=== PATIENT | female | born 2000 | race Caucasian/White ===

== ENCOUNTER 2024-10-06 06:07 | Emergency (ER) | payer BC ==
--- OUTSIDE RECORDS SUMMARY | 2024-10-06 06:11 | XMS REPORT | Continuity of Care Document ---
Author Name Unknown Address [address] [facility] [address] [place] [address] [facility] thconnect Address [address] [facility] [address] [place] [address] Care Team Providers Care Brand Marketing Manager Name Role Phone Lenora Lester Attending Clinician Narciso Ramesh Attending Clinician Lenora Mac Admitting Clinician Christie Ivory Admitting Clinician Unavailable Payers Payer Name Policy Type Policy Number Effective Date Expirati on Date Source Allergies, Adverse Reactions, Alerts Allergy Name Allergy Type Status Severity Reaction(s) Onset Date Inactive Date Treating Clinician Comments Source No Known Drug Allergie s DA Active U 07-01 00:00: 00 [facility] No Known Allergie s DA Active U 2018-11 00:00: 00 [facility] No Known Allergie s DA Active U 2018-11 00:00: 00 [facility] No Known Allergie s DA Active U 11-24 00:00: 00 [facility] Procedures Procedure Date / Time Performed Performing Clinicia n Source [id number] 2024-07-01 00:00:00 MONMA.05 [facility] Encounters Start Date/Time End Date/Time Encounter Type Admission Type Attending Clinicians Care Facility Care Department Encounter ID Source 2024-07-01 04:39:00 2024-07-03 11:48:00 Inpatient Lenora Govea [facility] [id number] 10 [facility] 2024-02-22 14:17:00 2024-02-22 17:05:00 Emergency EM Narciso Cuello [facility] [id number] [facility] Results Test Description Test Time Test Comments Results Result Co mments Source AG HEPATITIS B [id number] 13:42:00* Test Item Value Reference Range Interpretation Comme nts AG HEPATITIS B SURFACE (test code = HBSAG) NON REACTIVE NONREACTIVE AB HEPATITIS C [id number] 13:42:00* Test Item Value Reference Range Interpretation Comme nts AB HEPATITIS C (test code = HCVAB) NONREACTIVE NONREACTIVE SIGNAL TO CUTOFF (test code = CUTOFF) <0.02 <0.80 N AB [id number] 13:42:00* Test Item Value Reference Range Interpretation Comme nts AB TREPONEMA (test code = TREPAB) NONREACTIVE NONREACTIVE AB HIV 1 13:42:00* Test Item Value Reference Range Interpretation Comme nts AB HIV 1 2 (test code = [id number]) NONREACTIVE NONREACTIVE Done by [employer] HIV Ag/Ab Combo Screen COMPREHENSIVE METABOLIC [id number] 12:57:00* Test Item Value Reference Range Interpretation Comme nts SODIUM (test code = NA) 138 mEq/L 136-145 N POTASSIUM (test code = K) 4.1 mEQ/L 3.4-4.5 N Please note new normal range as of March 2024 CHLORIDE (test code = CL) 107 mEq/L 98-107 N Please note new normal range as of March 2024 CARBON DIOXIDE (test code = CO2) 21 mEq/L 22-31 L ANION GAP (test code = GAP) 14.1 10-20 N GLUCOSE (test code = GLU) 81 mg/dL 74-106 N Please note new normal range as of March 2024 BLOOD UREA NITROGEN (test code = BUN) 7 mg/dL 8-23 L Please note ne w normal range as of March 2024 CREATININE (test code = CREAT) 0.5 mg/dL 0.55-1.02 L Please note new normal range as of March 2024 TOTAL PROTEIN (test code = PROT) 6.4 g/dL 5.7-8.2 N Please note new normal range as of March 2024 ALBUMIN (test code = ALB) 3.7 g/dL 3.2-4.8 N Please note new normal range as of March 2024 CALCIUM (test code = CA) 9.3 mg/dL 8.3-10.6 N Please note new normal range as of March 2024 BILIRUBIN TOTAL (test code = BILT) 0.6 mg/dL 0.3-1.2 N Please note n ew normal range as of March 2024 SGOT/AST (test code = AST) 20 units/L < 34 SGPT/ALT (test code = ALT) 15 units/L 10-49 N ALKALINE PHOSPHATASE TOTAL (test code = ALKP) 242 units/L 46-116 H Please note n ew normal range as of March 2024 GLOMERULAR FILTRATION RATE (test code = GFR) 132.57 ml/min >60 N The Glomerular Filtration Rate is a calculated parameterbased on serum Creatinine, patient age and sex. GFR valuesless than 60 mL/min/1.73 square meters are indicative ofChronic Kidney Disease. Values less than 15 mL/min/1.73square meters indicate Kidney failure. The calculation forGFR is based on the CKD-EPI (2020) calculation. This formulais race indifferent and is the recommended formula for GFRby the National Kidney Foundation for Adults.The GFR will not calculate if the sex is unknown or if thepatient's age is <18 years. CBC W/AUTO [id number] 12:30:00* Test Item Value Reference Range Interpretation Comme nts WHITE BLOOD CELL (test code = WBC) 10.0 K/mm3 6.5-12.3 N RED BLOOD CELL (test code = RBC) 4.07 M/mm3 3.51-4.69 N HEMOGLOBIN (test code = HGB) 12.1 g/dL 10.1-13.8 N HEMATOCRIT (test code = HCT) 36.8 % 32.5-41.8 N MEAN CELL VOLUME (test code = MCV) 90.4 fL 84.6-96.6 N MEAN CELL HGB (test code = MCH) 29.7 pg 27.3-33.9 N MEAN CELL HGB CONCETRATION ( test code = MCHC) 32.9 gm/dL 32.0-34.2 N RED CELL DISTRIBUTION WIDTH (test code = RDW) 13.0 % 12.2-16.3 N PLATELET COUNT (test code = PLT) 258 K/mm3 134-363 N MEAN PLATELET VOLUME (test c ode = MPV) 9.8 fL 9.2-12.7 N NEUTROPHIL % (test code = NT%) 68.5 % 57.9-77.3 N LYMPHOCYTE % (test code = LY%) 21.1 % 14.5-29.7 N MONOCYTE % (test code = MO%) 8.2 % 3.6-10.2 N EOSINOPHIL % (test code = EO%) 1.6 % 0.0-3.0 N BASOPHIL % (test code = BA%) 0.2 % 0.1-0.9 N NEUTROPHIL # (test code = NT#) 6.8 K/mm3 LYMPHOCYTE # (test code = LY#) 2.1 K/mm3 MONOCYTE # (test code = MO#) 0.8 K/mm3 EOSINOPHIL # (test code = EO#) 0.16 K/mm3 BASOPHIL # (test code = BA#) 0.0 K/mm3 - US [id number] 16:52:00 [facility] : 2000 Sex: F Patient Name: JOHAN LOREDO Unit No: [id number] EXAMS: CPT CODE: [id number] US LTD 76896 EXAM: - US LTD: 02/22/2024 3:22 PM HISTORY: 19 weeks pelvic pain COMPARISON: None Fetus: Single, breech presentation. Placenta: Anterior, without previa. Cervix: 3.9 cm in length. Amniotic fluid: Maximum vertical pocket 5.1 cm movement: Observed Heart rate: 145 beats perminute GESTATIONAL AGE (established): 19 weeks, 5 days, EDC (established): 07/13/2024 Bilateral maternal ovaries appear unremarkable. IMPRESSION: Intrauterine with breech presentation with heart tones present. This examination does not include a complete evaluation. If a evaluation is clinically indicated, and complete OB ultrasound exam is recommended on an elective basis. at 1652 Reported and signed by: Ebony Ruth MD CC: Narciso Cuello MD Technologist: Odilon Calabrese RDMS Probe: Trnscrbd D/ (1651) [id number] Orig Print D/T: S: 02/22/2024 (842) [facility] N LOLA: JOHAN LOREDO Radiology Department PHYS: Narciso Sutton MD [address] : 2000 AGE: 23 SEX: [place] [address] LOC: KatelynERS PHONE #: [phone] EXAM DATE: 02/22/2024 STATUS: REG ER FAX #: [phone] RAD NO: Page 1 Signed Report Patient Name: JOHAN CARBONE Unit No: [id number] EXAMS: CPT CODE: [id number] LTD 63895 (Continued) [facility] NAME: JOHAN LOREDO Radiology Department PHYS: Narciso Sutton MD [address] : 2000 AGE: 23 SEX: [place] [address] LOC: KatelynERS PHONE #: [phone] EXAM DATE: 02/22/2024 STATUS: REG ER FAX #: [phone] RAD NO: Page 2 Signed ReportRUPTURE OF [id number] 16:03:00* Test Item Value Reference Range Interpretation Comme nts RUPTURE OF MEMBRANES (test c ode = ROM) NON-RUPTURED UA RFLX MICR CULT IF [id number] 15:27:00* Test Item Value Reference Range Interpretation Comme nts UA COLOR (test code = COLU) STRAW YELLOW UA APPEARANCE (test code = APPU) CLEAR CLEAR UA GLUCOSE DIPSTICK (test co de = DGLUU) NEGATIVE NEG UA BILIRUBIN DIPSTICK (test code = BILU) NEGATIVE NEG UA KETONE DIPSTICK (test cod e = KETU) 2+ NEG A UA SPECIFIC GRAVITY (test co de = SGU) 1.008 1.001-1.035 N UA BLOOD DIPSTICK (test code = DON) NEG NEG UA PH DIPSTICK (test code = ZOLTAN) 5.0 5-9 UA PROTEIN DIPSTICK (test co de = PROU) NEGATIVE NEG UA UROBILINIOGEN DIPSTICK (test code = URO) NEGATIVE mg/dL NEG UA NITRITE DIPSTICK (test co de = DELIO) NEG NEG UA LEUKOCYTE ESTERASE DIPSTI CK (test code = LEUU) NEG NEG UA WBC (test code = WBCU) 0-2 #/hpf NONE SEEN UA RBC (test code = RBCU) 0-2 #/hpf NONE SEEN UA EPITHELIAL CELLS (test co de = EPIU) RARE #/HPF RARE-FEW UA MUCUS (test code = MUCU) RARE NONE SEEN Indication for culture: Suprapubic PainSpecimen Description: CLEAN CATCH COMPREHENSIVE METABOLIC [id number] 15:26:00* Test Item Value Reference Range Interpretation Comme nts SODIUM (test code = NA) 137 mEq/L 135-145 N POTASSIUM (test code = K) 3.4 mEq/L 3.5-5.0 L CHLORIDE (test code = CL) 103 mEq/L 100-115 N CARBON DIOXIDE (test code = CO2) 24 mEq/L 22-31 N ANION GAP (test code = GAP) 13.50 10-20 N GLUCOSE (test code = GLU) 71 mg/dL 65-110 N BLOOD UREA NITROGEN (test code = BUN) 7 mg/dL 7-18 N CREATININE (test code = CREAT) 0.4 mg/dL 0.5-1.0 L TOTAL PROTEIN (test code = PROT) 6.9 gm/dL 6.3-8.2 N ALBUMIN (test code = ALB) 2.5 gm/dL 3.4-4.8 L CALCIUM (test code = CA) 8.4 mg/dL 8.4-10.2 N BILIRUBIN TOTAL (test code = BILT) 0.3 mg/dL 0.2-1.0 N SGOT/AST (test code = AST) 17 units/L 15-37 N SGPT/ALT (test code = ALT) 22 units/L 12-78 N ALKALINE PHOSPHATASE TOTAL (test code = ALKP) 61 units/L 46-116 N GLOMERULAR FILTRATION RATE (test code = GFR) 141 ml/min >60 N The Glomerular Filtration Rate is a calculated parameterbased on serum Creatinine, patient age and sex. GFR valuesless than 60 mL/min/1.73 square meters are indicative ofChronic Kidney Disease. Values less than 15 mL/min/1.73square meters indicate Kidney failure. The calculation forGFR is based on the CKD-EPI (202) calculation. This formulais race indifferent and is the recommended formula for GFRby the National Kidney Foundation for Adults.The GFR will not calculate if the sex is unknown or if thepatient's age is <18 years. CBC W/AUTO [id number] 15:10:00* Test Item Value Reference Range Interpretation Comme nts WHITE BLOOD CELL (test code = WBC) 13.6 K/mm3 6.5-12.3 H RED BLOOD CELL (test code = RBC) 3.71 M/mm3 3.51-4.69 N HEMOGLOBIN (test code = HGB) 11.5 g/dL 10.1-13.8 N HEMATOCRIT (test code = HCT) 34.2 % 32.5-41.8 N MEAN CELL VOLUME (test code = MCV) 92.2 fL 84.6-96.6 N MEAN CELL HGB (test code = MCH) 31.0 pg 27.3-33.9 N MEAN CELL HGB CONCETRATION ( test code = MCHC) 33.6 gm/dL 32.0-34.2 N RED CELL DISTRIBUTION WIDTH (test code = RDW) 12.2 % 12.2-16.3 N PLATELET COUNT (test code = PLT) 288 K/mm3 134-363 N MEAN PLATELET VOLUME (test c ode = MPV) 9.0 fL 9.2-12.7 L NEUTROPHIL % (test code = NT%) 75.2 % 57.9-77.3 N LYMPHOCYTE % (test code = LY%) 16.2 % 14.5-29.7 N MONOCYTE % (test code = MO%) 6.5 % 3.6-10.2 N EOSINOPHIL % (test code = EO%) 1.4 % 0.0-3.0 N BASOPHIL % (test code = BA%) 0.3 % 0.1-0.9 N NEUTROPHIL # (test code = NT#) 10.2 K/mm3 LYMPHOCYTE # (test code = LY#) 2.2 K/mm3 MONOCYTE # (test code = MO#) 0.9 K/mm3 EOSINOPHIL # (test code = EO#) 0.19 K/mm3 BASOPHIL # (test code = BA#) 0.0 K/mm3 HGB [id number] 08:35:00* Test Item Value Reference Range Interpretation Comme nts HEMOGLOBIN (test code = HGB) 9.5 g/dL 10.7-13.9 L Results verified by repeat analysis HEMATOCRIT (test code = HCT) 29.6 % 32.1-42.1 L Results verified by repeat analysis AG HEPATITIS B [id number] 16:23:00* Test Item Value Reference Range Interpretation Comme nts AG HEPATITIS B SURFACE (test code = HBSAG) NONREACTIVE NONREACTIVE IS CONSENT FORM SIGNED FOR HIV TESTING? YAB HEPATITIS C [id number] 16:23:00* Test Item Value Reference Range Interpretation Comme nts AB HEPATITIS C (test code = HCVAB) NONREACTIVE NONREACTIVE SIGNAL TO CUTOFF (test code = CUTOFF) <0.02 <0.80 N IS CONSENT FORM SIGNED FOR HIV TESTING? YAB [id number] 16:23:00* Test Item Value Reference Range Interpretation Comme nts AB TREPONEMA (test code = TREPAB) NONREACTIVE NONREACTIVE IS CONSENT FORM SIGNED FOR HIV TESTING? YAB HIV 1 16:23:00* Test Item Value Reference Range Interpretation Comme nts AB HIV 1 2 (test code = APO73FJ) NONREACTIVE NONREACTIVE Done by [employer] HIV Ag/Ab Combo Screen IS CONSENT FORM SIGNED FOR HIV TESTING? YCBC W/AUTO [id number] 13:50:00* Test Item Value Reference Range Interpretation Comme nts WHITE BLOOD CELL (test code = WBC) 8.7 K/mm3 6.6-12.1 N RED BLOOD CELL (test code = RBC) 4.11 M/mm3 3.45-5.01 N HEMOGLOBIN (test code = HGB) 12.6 g/dL 10.7-13.9 N HEMATOCRIT (test code = HCT) 39.4 % 32.1-42.1 N MEAN CELL VOLUME (test code = MCV) 96 fL 84.1-94.8 H MEAN CELL HGB (test code = MCH) 30.7 pg 27-35 N MEAN CELL HGB CONCETRATION ( test code = MCHC) 32.0 gm/dL 32.2-34.1 L RED CELL DISTRIBUTION WIDTH (test code = RDW) 12.6 % 12.4-16.5 N PLATELET COUNT (test code = PLT) 247 K/mm3 133-385 N IMMATURE PLATELET FRACTION ( test code = IPF) 0.0 % 0.0-10.8 N MEAN PLATELET VOLUME (test c ode = MPV) 10.0 fl 9.1-12.7 N NEUTROPHIL % (test code = NT%) 69.2 % 56.5-79.4 N LYMPHOCYTE % (test code = LY%) 22.6 % 14.3-34.3 N MONOCYTE % (test code = MO%) 6.9 % 5.1-10.4 N EOSINOPHIL % (test code = EO%) 0.5 % 0.1-3.0 N BASOPHIL % (test code = BA%) 0.3 % 0.1-1.0 N NEUTROPHIL # (test code = NT#) 6.0 K/mm3 LYMPHOCYTE # (test code = LY#) 2.0 K/mm3 MONOCYTE # (test code = MO#) 0.6 K/mm3 EOSINOPHIL # (test code = EO#) 0.04 K/mm3 BASOPHIL # (test code = BA#) 0.0 K/mm3 RBC MORPHOLOGY REQUIRED (sherri t code = RBCM) NORMAL NORMAL PLATELET MORPHOLOGY REQUIRED (test code = PLTMR) NORMAL NORMAL URINALYSIS W/O [id number] 13:46:00* Test Item Value Reference Range Interpretation Comme nts UA GLUCOSE DIPSTICK (test co de = DGLUU) NEGATIVE NEGATIVE UA KETONE DIPSTICK (test cod e = KETU) 1+ NEGATIVE UA PROTEIN DIPSTICK (test co de = PROU) NEGATIVE NEGATIVE IS NURSE PERFORMING TEST? N- US PREG AFTER [id number] 12:01:00Patient Name: JOHAN LOREDO Unit No: [id number] EXAMS: CPT CODE: [id number] US PREG AFTER [address] [facility] [address] [place], [place] [address] OBSTETRICAL ULTRASOUND REPORT ---- Pat. Name: JOHAN LOREDO Pat. No: [id number] Study Date: 04/27/2019 10:50am , Age: 07 2000, 18 Pregnancies: 2, Para 1 LMP: 12/14/2018 GA by LMP: 19w1d GA by US: 19w1d GA Selected: 19w1d (LMP) CLAY: 09/20/2019 Referring MD: CHRISTIE COYNE Piece Hand: Nae Chavez RDMS CPT4: [id number] Admitting MD: CHRISTIE COYNE MHist/Ind: 1ST SCAN ANATOMY ME ASUREMENTS AGE GROWTH EVALUATION Measurement GA Range Srce %for GA Ratios ----- ---- ------- BPD 4.5 cm 19w4d (01f0i-78i4q) Hadl BPD 70% FL/BPD 0.68 HC 16.6 cm 19w1d (17w4d- 20w6d) Hadl HC 53% FL/AC 0.23 APD 3.8 cm APD HC/AC 1.27 (1.06 - 1.25* TAD 4.5 cm TAD CI 0.81 (0.70 - 0.86) AC 13.1 cm 18w2d (68h2w-28h7p) Hadl AC 32% FL 3.1 cm 19w1d (18n3z-06l8s) Hadl FL 50% HL 2.7 cm 18w4d (69r9a-45l7t) Chidi HL 42% GA for sonogram 19w1d (21p0c-98p8r) Weight Estimate: based on (BPD,HC,AC,FL) Hadlock Weight: 272 gm (232-311) Hadlock : 0lbs, 9oz Cervical Length: 3.2 cm Heart Rate: 151 bpm MATERNAL ANATOMY Ovaries LxHxW (cm) Right 2.1 x 1.7 x 2.6 Vol: 4.9cc Left 2.5 x 0.9 x 2.3 Vol: 2.7cc CLINICAL SUMMARY Type of Gestation: Bacon Intrauterine in vertex presentation. size is appropriate for gestational age. motion and o rgans seen: heart motion seen somatic activity observed body and limb movements seen Four chamber heart observed Left ventricular outflow tract (LVOT) seen [facility] NAME: JOHAN LOREDO Radiology Department PHYS: Christie Laguerre III, MD [address] : 2000 AGE: 18 SEX: Daysi [place], [place] [address] LOC: [facility] PHONE #: [phone] EXAM DATE: 04/27/2019 STATUS: REG CLI FAX #: [phone] RAD NO: Page 1 Signed Report (CONTINUED) Patient Name: JOHAN LOREDO Unit No: [id number] EXAMS: CPT CODE: [id number] US PREG [id number] TRI 72167 (Continued) Right ventricular outflow tract (RVOT) seen Normal intracranial anatomy seen Umbilical cord insertion in fetus seen stomach, Renal Fossa, Bladder and Spine seen Threevessel umbilical cord noted abnormalities observed: None seen at this exam Placental location: Posterior Placental maturity : Grade 1 There is no evidence of placenta previa. Amniotic fluid vol ume is normal. Uterus and adnexa: No significant abnormality is seen. Thank you for allowing us to participate in the care of this patient. Joshua Johnson M.D. Electronic Signature 04/27/2019 12:01pm at 1201 Reported and signed by: Joshua Johnson MD CC: Christie Coyne III, MD Technologist: Nae Chavez RDMS Probe: Trnscrbd D/ (1201) [id number] Orig Print D/T: S: 04/27/2019 (1201) [facility] NAME: JOHAN LOREDO Radiology Department PHYS: Christie Laguerre III, MD [address] : 2000 AGE: 18 SEX: F [place], [place] [address] LOC: [facility] PHONE #: [phone] EXAM DATE: 04/27/2019 STATUS: REG CLI FAX #: [phone] RAD NO: Page 2 Signed Report PatientName: JOHAN LOREDO Unit No: [id number] EXAMS: CPT CODE: [id number] US PREG AFTER 1ST TRI [address]396 (Continued) [facility] NAME: LOREDOJOHAN Radiology Department PHYS: Christie Laguerre III, MD [address] : 2000 AGE: 18 SEX: F [place] [id number] LOC: [facility] PHONE #: [phone] EXAM DATE: 04/27/2019 STATUS: REG CLI FAX #: [phone] RAD NO: Page 3 Signed ReportHCG [id number] 22:17:00* Test Item Value Reference Range Interpretation Comme nts HCG SERUM (test code = HCG) 07080 INTERPRETATION:V ALUES BETWEEN 15-20 milliInternational units/mL NEED TO BERETESTED WITHIN 48 HOURS. All units for these ranges are in milliInternationalunits/mL0-1 WK AFTER CONCEPTION 0-50 1-2 WKS AFTER CONCEPTION 40-3002-3 WKS AFTER CONCEPTION 100-1,0003-4 WKS AFTER CONCEPTION 500-6,0001-2 MONTHS AFTER CONCEPTION 5,000-200,0002-3 MONTHS AFTER CONCEPTION 10,000-100,0002ND TRIMESTER 3,000-50,0003RD TRIMESTER 1,000-50,000 SPECIMENS WITH AN HCG LEVEL FROM 0-6 milliInternationalunits/mL SHOULD BE CONSIDERED NEGATIVE COMPREHENSIVE METABOLIC [id number] 21:58:00* Test Item Value Reference Range Interpretation Comme nts SODIUM (test code = NA) 138 mEq/L 135-145 N POTASSIUM (test code = K) 3.1 mEq/L 3.5-5.0 L CHLORIDE (test code = CL) 103 mEq/L 100-115 N CARBON DIOXIDE (test code = CO2) 27 mEq/L 22-31 N ANION GAP (test code = GAP) 11.40 10-20 N GLUCOSE (test code = GLU) 93 mg/dL 65-110 N BLOOD UREA NITROGEN (test co de = BUN) 6 mg/dL 7-18 L GLOMERULAR FILTRATION RATE ( test code = GFR) 157 ml/min >60 N CREATININE (test code = CREAT) 0.5 mg/dL 0.5-1.0 N TOTAL PROTEIN (test code = PROT) 6.5 gm/dL 6.3-8.2 N ALBUMIN (test code = ALB) 2.8 gm/dL 3.4-4.8 L CALCIUM (test code = CA) 8.4 mg/dL 8.4-10.2 N BILIRUBIN TOTAL (test code = BILT) 0.3 mg/dL 0.2-1.0 N SGOT/AST (test code = AST) 17 units/L 15-37 N SGPT/ALT (test code = ALT) 16 units/L 12-78 N ALKALINE PHOSPHATASE TOTAL ( test code = ALKP) 51 units/L 46-116 N [id number] 21:58:00* Test Item Value Reference Range Interpretation Comme nts LIPASE (test code = LIP) 63 units/L 73-393 L UA RFLX MICR CULT IF [id number] 21:39:00* Test Item Value Reference Range Interpretation Comme nts UA COLOR (test code = COLU) YELLOW YELLOW UA APPEARANCE (test code = APPU) CLEAR CLEAR UA GLUCOSE DIPSTICK (test co de = DGLUU) NEGATIVE NEG UA BILIRUBIN DIPSTICK (test code = BILU) NEGATIVE NEG UA KETONE DIPSTICK (test cod e = KETU) NEGATIVE NEG UA SPECIFIC GRAVITY (test co de = SGU) 1.006 1.001-1.035 N UA BLOOD DIPSTICK (test code = DON) NEG NEG UA PH DIPSTICK (test code = ZOLTAN) 6.0 5-9 UA PROTEIN DIPSTICK (test co de = PROU) NEGATIVE NEG UA UROBILINIOGEN DIPSTICK (t est code = URO) 4.0 mg/dL NEG A UA NITRITE DIPSTICK (test co de = DELIO) NEG NEG UA LEUKOCYTE ESTERASE DIPSTI CK (test code = LEUU) NEG NEG UA WBC (test code = WBCU) 0-2 #/hpf NONE SEEN UA EPITHELIAL CELLS (test co de = EPIU) RARE #/HPF RARE-FEW UA BACTERIA (test code = BACU) MODERATE /HPF RARE-FEW A UA MUCUS (test code = MUCU) RARE NONE SEEN CBC W/AUTO [id number] 21:34:00* Test Item Value Reference Range Interpretation Comme nts WHITE BLOOD CELL (test code = WBC) 5.2 K/mm3 6.6-12.1 L RED BLOOD CELL (test code = RBC) 3.82 M/mm3 3.45-5.01 N HEMOGLOBIN (test code = HGB) 11.7 g/dL 10.7-13.9 N HEMATOCRIT (test code = HCT) 34.9 % 32.1-42.1 N MEAN CELL VOLUME (test code = MCV) 91 fL 84.1-94.8 N MEAN CELL HGB (test code = MCH) 30.6 pg 27-35 N MEAN CELL HGB CONCETRATION ( test code = MCHC) 33.5 gm/dL 32.2-34.1 N RED CELL DISTRIBUTION WIDTH (test code = RDW) 12.7 % 12.4-16.5 N PLATELET COUNT (test code = PLT) 196 K/mm3 133-385 N IMMATURE PLATELET FRACTION ( test code = IPF) 0.0 % 0.0-10.8 N MEAN PLATELET VOLUME (test c ode = MPV) 9.3 fl 9.1-12.7 N NEUTROPHIL % (test code = NT%) 62.5 % 56.5-79.4 N LYMPHOCYTE % (test code = LY%) 23.8 % 14.3-34.3 N MONOCYTE % (test code = MO%) 11.2 % 5.1-10.4 H EOSINOPHIL % (test code = EO%) 1.9 % 0.1-3.0 N BASOPHIL % (test code = BA%) 0.2 % 0.1-1.0 N NEUTROPHIL # (test code = NT#) 3.2 K/mm3 LYMPHOCYTE # (test code = LY#) 1.2 K/mm3 MONOCYTE # (test code = MO#) 0.6 K/mm3 EOSINOPHIL # (test code = EO#) 0.10 K/mm3 BASOPHIL # (test code = BA#) 0.0 K/mm3 RBC MORPHOLOGY REQUIRED (sherri t code = RBCM) NORMAL NORMAL PLATELET MORPHOLOGY REQUIRED (test code = PLTMR) NORMAL NORMAL Notes Date/Time Note Provider Source 2024-08-28 19:40:00 [facility] OB Disch REPORT#:[id number] REPORT STATUS: Signed REPORT INITIALIZATION DATE:08/28/24 TIME: 1939 PATIENT: JOHAN LOREDO UNIT #: [id number] ROOM/BED: [address] : 98 AGE: 24 SEX: F ATTEND: Lenora Lester MD ADM AUTHOR: Idalia Gonzalez DO REPT SERVICE DT/TIME: 08/28/241939 * ALL edits or amendments must be made on the electronic/computer document * Subjective Subjective Admission EGA: Weeks: 38 Days: 2 EGA at delivery (wks/days): 38 weeks Status/day: post , post operative (2) Objective Physical Exam Incision site: well approximated edges, no drainage, no inflammation Discharge Summary General Assessment: nml progress Hospital course: repeat admit Discharge to: Home/Self Care Discharge diagnosis: full-term uncomp delivery Baby A: status: live born Gender: male 1 minute: 8 5 minutes: 9 Plan: routine care, circumcision today Discharge Instructions Diet: Resume Home Diet/Feeds Additional discharge routines: Attending Follow-Up Discharge meds: Continue taking these medications: PNV WITH CA/IRON/FA/DHA (PNV-OMEGA SOFTGEL) 1 EACH CAP 1 CAPSULE ORAL DAILY. CHOLECALCIFEROL (VITAMIN D3) (VITAMIN D3) 1,000 UNITS CAP Start taking the following new medications: IBUPROFEN (MOTRIN) 600 MG TAB 600 MILLIGRAM ORAL FOUR TIMES DAILY NEEDED. as needed for PAIN Qty = 30 No Refills traMADol (ULTRAM) 50 MG TAB 50 MILLIGRAM ORAL EVERY 6 HOURS NEEDED. as needed for ACUTE PAIN Qty = 20 No Refills Add'l Follow-up Appointments Attending Physician: Attending Physician: Lenora Lester MD at 1940 RPT #:[id number] END OF REPORT [facility] 2024-07-05 20:51:00 [id number] [facility] [address] [place], [place] [address] PATIENT NAME: JOHAN LOREDO ADMIT DATE: 07/01/24 ACCOUNT NO: [id number] ROOM NO: [id number] AGE: 24 SEX: F ADMITTING PHYSICIAN: Lenora Lester MD ATTENDING PHYSICIAN: Lenora Lester MD Provider Query QUERY TEXT: Condition OB Blood Loss 360MD Query related questions should be directed to: [facility] Coding Query Hotline Based on your clinical judgment, please clarify the condition(s) that represent(s) the clinical indicators listed below. The medical record reflects the diagnosis/procedure of section-OB Delivery Note 07/01/2024 The patient's Clinical Indicators include: section-OB Delivery Note 07/01/2024 Estimated blood loss (ml): 500-OB Delivery Note 07/01/2024 HEMATOCRIT (%) 36.8 21.3 L HEMOGLOBIN (g/dL) 12.1 7.2 L-LAB VITAMIN 1 TAB-MAR Options provided: -- Acute hemorrhagic/blood loss anemia -- Chronic blood loss anemia -- Acute on chronic blood loss anemia -- Iron deficiency anemia -- Other deficiency anemia, Please specify type (e.g. vitamin, B12, folate, etc.) -- Inherited anemia, Please specify type (e.g. sickle cell, thalassemia, etc). -- Decreased hemoglobin and hematocrit values not diagnosed as anemia -- Dilutional -- Drug induced anemia, Please specify drug. -- Anemia due to other condition, Please specify condition. -- Anemia, unspecified -- Other - I will add my own diagnosis -- Dismiss - Not applicable / Not valid -- Dismiss - Clinically unable to determine / Unknown -- Assign to another provider QUERY RESPONSE: The patient has acute on chronic blood loss anemia. Query created by: Yaima Saenz on 07/05/2024 7:20 AM at 2051 PATIENT NAME: JOHAN LOREDO [facility] 2024-07-03 07:07:00 [facility] ([facility]) OB Postpart Progr Note REPORT#:[id number] REPORT STATUS: Signed REPORT INITIALIZATION DATE:07/03/24 TIME: 706 PATIENT: JOHAN LOREDO UNIT #: [id number] ROOM/BED: [address] : 98 AGE: 24 SEX: F ATTEND: Lenora Lester MD ADM AUTHOR: Oralia Keenan MD REPT SERVICE DT/TIME: 07/03/24 0707 * ALL edits or amendments must be made on the electronic/computer document * Subjective Subjective Admission EGA: Weeks: 38 Days: 2 EGA at delivery (wks/days): 38 weeks Status/day: post , post operative (2) Patient reports: Patient reports: No: complaints. Objective Nursing Documentation Review Nursing data: Vital Signs Date Temp Pulse Resp B/P B/P Mean Pulse Ox FiO2 07/02 97.9-98.0 80-88 18 110-117/69-72 84.0-86.9 98 Physical Exam Abdomen: soft, no abnormal tenderness, no guarding Incision site: well approximated edges, no drainage, no inflammation Uterus: involution appropriate, non-tender Lochia: normal Diagnosis, Assessment Plan Diagnosis, Assessment Plan Assessment: nml progress Plan: routine care, circumcision today at 0749 RPT #:[id number] END OF REPORT [facility] 2024-07-02 07:43:00 [facility] ([facility]) OB Postpart Progr Note REPORT#:[id number] REPORT STATUS: Signed REPORT INITIALIZATION DATE:07/02/24 TIME: 742 PATIENT: JOHAN LOREDO UNIT #: [id number] [address] AGE: 24 SEX: F ATTEND: Lenora Lester MD ADM AUTHOR: Oralia Keenan MD REPT SERVICE DT/TIME: 07/02/24 0743 * ALL edits or amendments must be made on the electronic/computer document * Subjective Subjective Admission EGA: Weeks: 38 Days: 2 EGA at delivery (wks/days): 38 weeks Comments: Pt sleeping soundly Objective Nursing Documentation Review Nursing data: General VS: Vital Signs Date Temp Pulse Resp B/P B/P Mean Pulse Ox FiO2 07/01-07/02 97.6-98.7 77-100 14-32 89-114/50-70 65.0-85.0 93-100 Last Documented: Result Date Time B/P Mean 66.0 07/02 0449 Pulse Ox 93 07/02 0449 B/P 97/50 07/02 0449 Temp 98.6 07/02 044 Pulse 86 07/02 0449 Resp 18 07/02 0449 PATIENT WEIGHT: Weight (lb): 188 Weight (oz): Weight (kg): 85.500 Diagnosis, Assessment Plan Diagnosis, Assessment Plan Assessment: nml progress Plan: routine care at 0749 RPT #:[id number] END OF REPORT [facility] 2024-07-01 06:48:00 [facility] ([facility]) OB Delivery Note REPORT#:[id number] REPORT STATUS: Signed REPORT INITIALIZATION DATE:07/01/24 TIME: 647 PATIENT: JOHAN LOREDO UNIT #: [id number] ROOM/BED: [address] : 98 AGE: 24 SEX: F ATTEND: Lenora Lester MD ADM AUTHOR: Idalia Gonzalez DO REPT SERVICE DT/TIME: 07/01/24 0648 * ALL edits or amendments must be made on the electronic/computer document * OB Delivery Nursing Documentation Review Nursing data: The data set between the solid lines has been imported from nursing documentation. Any exceptions have been noted below under Provider comments. _ ROM date: ROM time: Membranes rupture method: Amniotic fluid color: Amniotic fluid amount: Steroids prior to arrival: Antibiotic prophylaxis given: Post hemorrhage risk score: Delivery date infant A: Delivery time A: Birthweight (gm) infant A: Weight (lb) infant A: Weight (oz) infant A: Gender infant A: 1 minute A: 5 minutes infant A: 10 minutes infant A: Cord pH obtained infant A: Vacuum time infant A: Vacuum # pulls infant A: Vacuum # popoffs A: QBL at delivery: __ Provider comments on imported nursing data: [] Pre-delivery GBS status: GBS status: negative [place] evaluation at delivery: NRP certified personnel Admission EGA: Weeks: 38 Days: 2 EGA at delivery (wks/days): 38 weeks Blood Loss/Details Blood loss at delivery: <1K: no sx hypovol=no hem EBL at delivery (ml's): 500 Baby A Information Baby A information Delivery date: 07/01/24 Delivery time: 740 status: live born Wt of baby (grams): 3440 Wt of baby (lbs/oz): 79 Gender: male 1 minute: 8 5 minutes: 9 Presentation: vertex ABG details Baby A Cord blood gases: not collected Nuchal cord Baby A Nuchal cord: no Op/Inv Proc Note - Brief )(Start date: 07/01/2024 )(Start time: 735 )( Procedure(s) performed: repeat low transverse c/s )( Primary Surgeon: Antonette Gonzalez )( Accounting Manager Cpa(s): [employer] [place] )( Pre-procedure diagnosis: Term , Prior csection x2 )( Post-procedure diagnosis: Same )( Technique/Procedure: After informed consent was obtained, the patient was taken to the operating room where anesthesia was administered and found to be adequate. She was then prepped and draped in sterile fashion in a dorsal supine position with a leftward tilt. A time out procedure was then performed and the OR team agreed to the planned procedure. The patient s abdomen was then tested with an Allis clamp and anesthesia was found to be adequate. A Pfannenstiel skin incision was then made with the scalpel and carried down to the underlying fascia with the bovie. The bovie was then used to score the fascia in the midline and the incision was then extended laterally using bovie electrocautery. The superior aspect of the fascial incision was then grasped with Edwin clamps, elevated and rectus muscles were dissected off. The inferior aspect of the fascial incision was then grasped with Edwin clamps, elevated and rectus muscles were dissected off. The rectus muscles were then in the midline and the peritoneum identified in a clear area and entered bluntly. The peritoneum was then extended superior and inferiorly with good visualization of the bladder. The bladder blade was then inserted and the vesicouterine peritoneum was then identified, grasped with pickups and entered sharply using Metzembaum scissors. The incision was then extended laterally and bladder flap created digitally. The bladder blade was then reinserted and the uterus was incised in a transverse fashion with the scalpel. The incision was then extended laterally using blunt dissection. The infant was then delivered in cephalic presentation atraumatically, nose and mouth were suctioned, cord was clamped and cut, and infant was handed off to waiting nurse. Nuchal cord was not noted. Cord blood banking was not collected. The placenta was then removed manually and the uterus was exteriorized and was cleared of all clots and debris with a moist lap sponge. The hysterotomy was then repaired using 0 Monocryl in a running locked fashion with good hemostasis noted. The uterus was then returned to the abdomen. The pelvic colic gutters were then cleared off all clots and debris using a moist lap sponge. The hysterotomy and bladder were then reinspected and found to be hemostatic. The rectus muscles and peritoneum were then reapproximated in the midline using 2.0 Vicryl in a mattress suture fashion. The muscle and fascia were then examined and found to be hemostatic. The fascia was then reapproximated using 0 Vicryl in a running fashion. The subcutaneous tissue was then irrigated and bovie cautery was used to obtain hemostasis. The subcutaneous tissue was then reapproximated using 2.0 Plain. The skin was then closed with 3.0 Monocryl in a subcuticular fashion. The patient tolerated the procedure well. She was then taken to recovery room in stable condition. Sponge, lap and needle counts were correct times 3. The radiofrequency scan was performed for retained sponges and was negative. 2 grams of ancef were given prior to the start of surgery for surgical prophylaxis. Anesthesia: combined spinal/epidural )( Estimated blood loss (ml): 500 Fluids: 2000 Urine output: 75 Condition: stable Delivery Delivery section indication: elective repeat Priority: scheduled : : declined Antibiotic prior to incision: 1 dose )(SCDs applied activated: Yes Uterine incision: low transverse Uterine scar: intact Consent: indication discussed, questions answered, pt consent to op delivery Mother's condition: mother stable 's condition: infant stable in room at 0757 RPT #:[id number] END OF REPORT [facility] 2024-07-01 06:45:00 [facility] ([facility]) OB Admission / H P REPORT#:[id number] REPORT STATUS: Signed REPORT INITIALIZATION DATE:07/01/24 TIME: 644 PATIENT: JOHAN LOREDO UNIT #: [id number] ROOM/BED: [address] : 98 AGE: 24 SEX: F ATTEND: Lenora Lester MD ADM AUTHOR: Idalia Gonzalez DO REPT SERVICE DT/TIME: 07/01/24 0645 * ALL edits or amendments must be made on the electronic/computer document * OB History Nursing Documentation Review Nursing data: The data set between the solid lines has been imported from nursing documentation. Any exceptions have been noted below under Provider comments. Current data Steroids prior to arrival: ROM date: ROM time: EDC date: 07/13/24 Gestational age (labor triage): Post hemorrhage risk score: Prior history : 3 Para: 2 Term: : Abortions spontaneous: Abortions induced: Living children: Ectopic: Stillbirths: Live births: deaths: Number of previous C/S: Reported maternal labs/data Blood type: Rh type: Rubella: Hepatitis B: HIV exposure test: VDRL: Group B beta strep: Rho(D) immune globulin this preg: Monitor mode - UA: Feeding preference: Provider comments on imported nursing data: [] Chief complaint: scheduled HPI: @ 38w2d who presents for scheduled repeat csection. uncomplicated other than 2 previous csections. history: : 3 Term: 2 : 0 Abortus: 0 Living children: 2 Complications (prev preg): none Previous : low uterine trans incis Number of prev : 2 Indication for prior : repeat elective Current : Best EDC: 07/13/24 Admission EGA (weeks) 38 Admission EGA (days) 2 EDC based on: LMP, ultrasound, 1st trimester Conditions of : previous uterine incision Labs: Blood type: AB Rh: positive Rubella: immune Hepatitis B: negative HIV: negative STD: negative Syphilis: currently negative GBS: negative Procedures: none Genetic testing: none Past History Past Surgical History: Reports: . Alcohol Use Denies EtOH use Drug Use Denies recreational drugs Smoking status for patients 13 years old or older: Never Smoker Allergies: Coded Allergies: No Known Drug Allergies (07/01/24) Review of Systems All systems rev neg: except as marked Objective General VS: Last Documented: Result Date Time B/P Mean 84.0 07/01 0530 B/P 115/67 07/01 0530 Temp 98.0 07/01 0530 Pulse 92 07/01 0530 Resp 18 07/01 0530 Vital Signs Date Temp Pulse Resp B/P B/P Mean Pulse Ox FiO2 07/01 98.0 92 18 115/ 84.0 PATIENT WEIGHT: Weight (lb): 188 Weight (oz): Weight (kg): 85.500 Physical Exam Abdomen: gravid, no abnormal tenderness, no guarding Uterine activity: Monitor: toco Frequency (description): irritability Membranes: Membranes: Intact Baby A: Baby A baseline: 135 bpm Baby A variability: moderate 6-25 bpm Baby A accelerations: 15 X 15 Baby A decelerations: none Baby A FHR category: category 1 Diagnosis, Assessment Plan Diagnosis, Assessment Plan Assessment/Impression: previous C/S, for repeat Plan: admit to inpatient, scheduled , delivery Reason-sched C section: elective repeat at 0648 RPT #:[id number] END OF REPORT [facility] 2024-02-22 14:59:00 [facility] ([facility]) EMERGENCY PROVIDER REPORT REPORT#:[id number] REPORT STATUS: Signed DATE:02/22/24 TIME: 145 PATIENT: JOHAN LOREDO UNIT #: [id number] ROOM/BED: AGE: 23 SEX: F PCP PHYS: No Primary or Family Physician SERVICE AUTHOR: Narciso Cuello MD * ALL edits or amendments must be made on the electronic/computer document * HPI-General Illness General Initial Greet Date/Time 02/22/24 1420 Presentation Chief Complaint leakage of fluid Free Text HPI Notes Free Text HPI Notes 23 years old patient no past medical history 19 weeks presents complaining of 1 day of leakage of fluid and intermittent cramping, no vaginal bleeding, diarrhea, urinary symptoms or any other complaints. Review of Systems ROS Statements All systems rev neg except as marked. Free Text ROS Notes Free Text ROS Notes CONSTITUTIONAL: Normal; negative for fever, weight change, fatigue, or aching. HEENT: Eyes normal; negative for, irritation, or visual field defects. Ears normal; Negative for pain . Nose normal; Negative for runny nose, sinus problems , or nosebleeds. Mouth normal; Negative for dental problems,. Throat normal; Negative for hoarseness, difficulty swallowing, or sore throat. CARDIOVASCULAR: Normal; Negative for chest pain or, high blood pressure, orthopnea, PULMONARY: Normal; Negative for cough, sputum, shortness of breath or wheezing, SKIN: Normal; Negative for rashes. MUSCULOSKELETAL: Normal; Negative for back pain, joint pain. NEUROLOGIC: Normal; Negative for blackouts, headaches, seizures or dizziness. PSYCHIATRIC: Normal; Negative for anxiety, depression, or phobias. ENDOCRINE: Normal; Negative for diabetes, thyroid.HEMATOLOGIC/LYMPHATIC: Normal; Negative for anemia, swollen glands, or blood disorders. IMMUNOLOGIC: Negative; Negative for steroids, chemotherapy, or cancer. VASCULAR: Normal; Negative for varicose veins, blood clots, or leg ulcers. Past Medical History - Adult Stated Complaint 19 WKS PREG,FLUID DISCHARGE,LOWER ABD CRAMPING Allergies Coded Allergies: No Known Allergies (09/11/19) Home Medications Reported Medications CHOLECALCIFEROL (VITAMIN D3) (VITAMIN D3) PNV WITH CA/IRON/FA/DHA (PNV-OMEGA SOFTGEL) 1 CAP PO DAILY Physical Exam Vital Signs Vital Signs First Documented: Result Date Time Pulse Ox 100 02/21 1420 B/P 134/61 02/21 1420 B/P Mean 85 02/21 1420 O2 Delivery Room air 02/21 142 Temp 36.4 02/21 1420 Pulse 94 02/21 1420 Resp 18 02/21 142 Last Documented: Result Date Time Pulse Ox 100 02/21 1704 B/P 119/60 02/21 170 B/P Mean 79 02/21 1704 O2 Delivery Room air 02/21 170 Temp 36.6 02/21 170 Pulse 94 02/21 1704 Resp 18 02/21 170 Review of Vital Signs Reviewed, Vital signs normal Basic Physical Exam Basic PE GEN: Well appearing/NAD, HEAD: Atraumatic/NC, ENT: Membranes moist, NECK: Supple, CV: Reg rate rhythm, ABD: Soft/non-tender, EXT: No gross abnormality, SKIN: No rashes, warm/dry, NEURO: alert oriented, NEURO: gross movement NL Physical Exam Genitourinary General Sporting Goods Sales Manager present Vaginal Bleeding/Discharge Discharge clear. Interpretation Diagnostics Lab Results Interpretation Results Laboratory Tests 02/22/24 1453: [Embedded Image Not Available] Laboratory Tests: 02/21 02/21 1453 1452 Chemistry Sodium (135 - 145 mEq/L) 137 Potassium (3.5 - 5.0 mEq/L) 3.4 L Chloride (100 - 115 mEq/L) 103 Carbon Dioxide (22 - 31 mEq/L) 24 Anion Gap (10 - 20) 13.50 BUN (7 - 18 mg/dL) 7 Creatinine (0.5 - 1.0 mg/dL) 0.4 L Glomerular Filtr Rate (>60 ml/min) 141 Glucose (65 - 110 mg/dL) 71 Calcium (8.4 - 10.2 mg/dL) 8.4 Total Bilirubin (0.2 - 1.0 mg/dL) 0.3 AST (15 - 37 units/L) 17 ALT (12 - 78 units/L) 22 Total Alk Phosphatase (46 - 116 units/L) 61 Total Protein (6.3 - 8.2 gm/dL) 6.9 Albumin (3.4 - 4.8 gm/dL) 2.5 L Hematology WBC (6.5 - 12.3 K/mm3) 13.6 H RBC (3.51 - 4.69 M/mm3) 3.71 Hgb (10.1 - 13.8 g/dL) 11.5 Hct (32.5 - 41.8 %) 34.2 MCV (84.6 - 96.6 fL) 92.2 MCH (27.3 - 33.9 pg) 31.0 MCHC (32.0 - 34.2 gm/dL) 33.6 RDW (12.2 - 16.3 %) 12.2 Plt Count (134 - 363 K/mm3) 288 MPV (9.2 - 12.7 fL) 9.0 L Neut % (Auto) (57.9 - 77.3 %) 75.2 Lymph % (Auto) (14.5 - 29.7 %) 16.2 Bailey % (Auto) (3.6 - 10.2 %) 6.5 Eos % (Auto) (0.0 - 3.0 %) 1.4 Baso % (Auto) (0.1 - 0.9 %) 0.3 Neut # (Auto) (K/mm3) 10.2 Lymph # (Auto) (K/mm3) 2.2 Bailey # (Auto) (K/mm3) 0.9 Eos # (Auto) (K/mm3) 0.19 Baso # (Auto) (K/mm3) 0.0 Other Body Source Membranes Rupture NON-RUPTURED Urines Urine Color (YELLOW) STRAW Urine Appearance (CLEAR) CLEAR Urine pH (5 - 9) 5.0 Ur Specific [place] (1.001 - 1.035) 1.008 Urine Protein (NEG) NEGATIVE Urine Glucose (UA) (NEG) NEGATIVE Urine Ketones (NEG) 2+ H Urine Blood (NEG) NEG Urine Nitrite (NEG) NEG Urine Bilirubin (NEG) NEGATIVE Urine Urobilinogen (NEG mg/dL) NEGATIVE Ur Leukocyte Esterase (NEG) NEG Urine RBC (NONE SEEN #/hpf) 0-2 Urine WBC (NONE SEEN #/hpf) 0-2 Ur Epithelial Cells (RARE - FEW #/HPF) RARE Urine Mucus (NONE SEEN) RARE Microbiology: Date/Time Procedure - Status Source Growth 02/21 1529 Wet Prep - COMP VAGINAL Recent Impressions: ULTRASOUND - US LTD 02/21 1635 Report Impression - Status: SIGNED Entered: 02/22/2024 2575 IMPRESSION: Intrauterine with breech presentation with heart tones present. This examination does not include a complete evaluation. If a evaluation is clinically indicated, and complete OB ultrasound exam is recommended on an elective basis. Impression By: [email or web address] - Ebony Ruth MD Patient Discharge Departure Vital Signs/Condition Vital Signs First Documented: Result Date Time Pulse Ox 100 02/21 1420 B/P 134/61 02/21 1420 B/P Mean 85 02/21 1420 O2 Delivery Room air 02/21 1420 Temp 36.4 02/21 1420 Pulse 94 02/21 1420 Resp 18 02/21 1420 Last Documented: Result Date Time Pulse Ox 100 02/21 1704 B/P 119/60 04/20 170 B/P Mean 79 02/21 170 O2 Delivery Room air 02/22 1704 Temp 36.6 02/22 1704 Pulse 94 02/21 170 Resp 18 02/22 1704 All vital signs available at the time of this entry have been reviewed. Condition Stable, Improved Clinical Impression Clinical Impression Primary Impression: Pelvic pain affecting Time of Impression 165 Disposition Decision Discharge )( Discharged to Home Yes )( Time 165 )( Date 02/22/24 Discharge/Care Plan Patient Instructions Comfort Tips During at 1759 RPT #:[id number] END OF REPORT [facility] 2019-09-14 08:07:00 [id number] [facility] [address] [place], [place] [address] PATIENT NAME: JOHAN LOREDO ADMIT DATE: 09/11/19 ACCOUNT NO: [id number] ROOM NO: [facility] AGE: 19 SEX: F ADMITTING PHYSICIAN: Christie Coyne III, MD ATTENDING PHYSICIAN: Christie Coyne III, MD ADMISSION DATE: 09/11/2019 DISCHARGE DATE: 09/14/2019 01:00:00 ADMITTING DIAGNOSES: Term intrauterine , repeat section. HISTORY OF PRESENT ILLNESS: The patient is a 19-year-old 2, para 1, repeat section, admitted for repeat section. The patient has had no issues during the . Her blood type is AB positive. GBS is negative. Rubella equivocal, VDRL nonreactive. GC and chlamydia negative. PAST MEDICAL HISTORY: None known. ALLERGIES: NONE KNOWN. PAST SURGICAL HISTORY: section. The patient received a Tdap and flu shot during . She is also counseled on , but she wishes to proceed with a repeat section. PHYSICAL EXAMINATION: VITAL SIGNS: Blood pressure 110/70. Weight 170 pounds. GENERAL: Well-developed, well-nourished female, in no apparent distress. Remainder of physical exam within normal limits. Estimated weight 7 pounds. CERVICAL: Deferred. HOSPITAL COURSE: The patient underwent an elective repeat section, did well postoperatively, advanced to regular diet, and dismissed on postop day #3 in good condition. Preop hemoglobin was 12.1, postop hemoglobin 9.5. FINAL DIAGNOSES: Term intrauterine , repeat section, anemia secondary to blood loss and dilution. DISPOSITION AND PROGNOSIS: She was dismissed in good condition on vitamins and iron. She desires no narcotic pain medication. Instructions were given on wound care and when to call in terms of febrile illness, wound issues or bleeding. Dictated By: Christie Coyne III, MD WT: DS:IKE/CLAYTON/CORTEZ PATIENT NAME: JOHAN LOREDO Conf#: [id number]/DID#: [id number] Authenticated by Christie Coyne MD On 09/17/2019 07:51:49 AM at 0752 PATIENT NAME: JOHAN LOREDO [facility] 2019-09-14 08:00:00 [facility] ([facility]) OB Postpart Progr Note REPORT#:[id number] REPORT STATUS: Signed DATE:09/14/19 TIME: 0800 PATIENT: JOHAN LOREDO UNIT #: [id number] ROOM/BED: [address] : 98 AGE: 19 SEX: F ATTEND: Christie Coyne III, MD ADM AUTHOR: Christie Coyne III, MD * ALL edits or amendments must be made on the electronic/computer document * Subjective Subjective Admission EGA (wks/days): 39 weeks EGA at delivery (wks/days): 39 weeks Status/day: post , post operative Patient reports: Patient reports: No: complaints. Objective Nursing Documentation Review Nursing data: The data set between the solid lines has been imported from nursing documentation. Any exceptions have been noted below under Provider comments. Feeding preference: Provider comments on imported nursing data: [] Physical Exam Abdomen: soft, no abnormal tenderness, no guarding, normoactive bowel sounds Incision site: well approximated edges, marjorie intact, dry, no drainage, no inflammation Fundus: firm, below the umbilicus Lochia: normal Lower extremities: Edema: trace Niyah's sign: negative Diagnosis, Assessment Plan Diagnosis, Assessment Plan Assessment: nml progress, anemia r/t: Plan: routine care, discharge today at 0800 RPT #:[id number] END OF REPORT [facility] 2019-09-13 08:53:00 [facility] ([facility]) OB Postpart Progr Note REPORT#:[id number] REPORT STATUS: Signed DATE:09/13/19 TIME: 0853 PATIENT: JOHAN LOREDO UNIT #: [id number] ROOM/BED: [address] : 98 AGE: 19 SEX: F ATTEND: Christie Coyne III, MD ADM AUTHOR: Christie Coyne III, MD * ALL edits or amendments must be made on the electronic/computer document * Subjective Subjective Admission EGA (wks/days): 39 weeks EGA at delivery (wks/days): 39 weeks Status/day: post , post operative Patient reports: Patient reports: Yes: normal lochia, pain management effective, tolerating po well, voiding well, voiding without pain, tolerating ambulation, flatus. No: complaints, bowel movement, nausea, vomiting, excessive bleeding, abdominal pain. Objective Nursing Documentation Review Nursing data: The data set between the solid lines has been imported from nursing documentation. Any exceptions have been noted below under Provider comments. Feeding preference: Provider comments on imported nursing data: [] Physical Exam Abdomen: soft, no abnormal tenderness, no guarding, normoactive bowel sounds Incision site: well approximated edges, marjorie intact, dry, no drainage, no inflammation Fundus: firm, below the umbilicus Lochia: normal Lower extremities: Edema: trace Niyah's sign: negative Diagnosis, Assessment Plan Diagnosis, Assessment Plan Assessment: nml progress Plan: routine care, circumcision today, discharge tomorrow at 0853 RPT #:[id number] [facility] 2019-09-12 08:41:00 [facility] ([facility]) OB Postpart Progr Note REPORT#:[id number] REPORT STATUS: Signed DATE:09/12/19 TIME: 840 PATIENT: JOHAN LOREDO UNIT #: [id number] ROOM/BED: [address] : 98 AGE: 19 SEX: F ATTEND: Christie Coyne III, MD ADM AUTHOR: Christie Coyne III, MD * ALL edits or amendments must be made on the electronic/computer document * Subjective Subjective Admission EGA (wks/days): 39 weeks EGA at delivery (wks/days): 39 weeks Status/day: post , post operative Patient reports: Patient reports: Yes: normal lochia, pain management effective, tolerating po well, voiding well, voiding without pain, tolerating ambulation, flatus. No: complaints, bowel movement, nausea, vomiting, excessive bleeding, abdominal pain. Objective Nursing Documentation Review Nursing data: The data set between the solid lines has been imported from nursing documentation. Any exceptions have been noted below under Provider comments. Feeding preference: Provider comments on imported nursing data: [] Physical Exam Abdomen: soft, no abnormal tenderness, no guarding, normoactive bowel sounds Incision site: no drainage Fundus: firm, below the umbilicus Lochia: normal Lower extremities: Edema: trace Niyah's sign: negative Diagnosis, Assessment Plan Diagnosis, Assessment Plan Assessment: nml progress Plan: routine care, circumcision tomorrow at 0842 [facility] #:[id number] END OF REPORT [facility] 2019-09-11 10:05:00 [id number] [facility] [address] [place], [place] [address] PATIENT NAME: JOHAN LOREDO ADMIT DATE: 09/11/19 ACCOUNT NO: [id number] ROOM NO: Andrea4 AGE: 19 SEX: F ADMITTING PHYSICIAN: Christie Coyne III, MD ATTENDING PHYSICIAN: Christie Coyne III, MD OPERATION DATE: 09/11/2019 PREOPERATIVE DIAGNOSIS: Term intrauterine , repeat section. POSTOPERATIVE DIAGNOSIS: PROCEDURE: ANESTHESIA: Epidural. SURGEON: Christie Coyne III, MD CIVIL CELEBRANT: Hermelindo Bond SA PROCEDURE IN DETAIL: The patient was taken to the operating room, prepped in sterile manner for abdominal procedure. A Pfannenstiel incision made through the previous Pfannenstiel scar and carried down to the fascia with the deep knife. Fascia was excised in midline and extended laterally with Brannon scissors. Rectus muscles were taken off the rectus fascia with blunt and sharp dissection and extended superiorly and inferiorly. Bladder blade was placed. Score incision was made approximately 4 cm above the bladder reflection. A viable male was delivered vertex without difficulty, clear fluid. suctioned. Cord clamped and cut and passed to nurses, crying vigorously. Apgars were 8 and 9. The placenta was manually removed. Uterus was exteriorized, and wiped free of all clots and blood. Previously, cord blood had been obtained. Hysterotomy incision closed with #1 Monocryl starting at each angle, tied in the midline with one [id number] in the midline for hemostasis. Uterus was firm. Tubes and ovaries were normal. The uterus was returned to the abdominal cavity and gutters wiped free of all clots and blood with a small amount of irrigation. Peritoneum was closed with 2-0 Monocryl and the fascia with 0 PDS. Subcutaneous closed with 3-0 Vicryl. Skin closed with marjorie. EBL was 600 mL. The patient tolerated the procedure well and went to recovery in good condition. Dictated By: Christie Coyne III, MD WT: OP:IKE/CLAYTON/CORTEZ Conf#: [id number]/DID#: [id number] Authenticated by Christie Coyne MD On 09/12/2019 08:43:47 AM PATIENT NAME: JOHAN LOREDO at 0844 PATIENT NAME: JOHAN LOREDO [facility] 2019-09-10 13:09:00 [id number] [facility] [place] [id number] [place] [address] PATIENT NAME: JOHAN LOREDO ADMIT DATE: 09/11/19 ACCOUNT NO: [id number] ROOM NO: [facility] AGE: 19 SEX: F ADMITTING PHYSICIAN: Christie Coyne III, MD ATTENDING PHYSICIAN: Christie Coyne III, MD ADMISSION DATE: 09/11/2019 ADMITTING DIAGNOSIS: Term intrauterine , repeat section. HISTORY OF PRESENT ILLNESS: The patient is a 19-year-old 2, para 1, repeat section. First was done for breech presentation. She has been counseled on , has considered the fact and wished to proceed with a repeat section. Blood type is AB positive, GBS negative, rubella equivocal, VDRL nonreactive. Direct Bruce is negative. GC, Chlamydia, HIV negative. She received her Tdap and a flu shot during the . ALLERGIES: NONE KNOWN. PAST SURGICAL HISTORY: section. REVIEW OF SYSTEMS: Negative. CURRENT MEDICATIONS: vitamins and iron. SOCIAL HISTORY: Negative for alcohol, tobacco or recreational drug use. PHYSICAL EXAMINATION: VITAL SIGNS: Blood pressure was 120/70 and weight 174 pounds. GENERAL: Well-developed, well-nourished female in no apparent distress. HEENT: Normocephalic. PERRLA. EOMs intact. Sclerae nonicteric. Oropharynx clear. HEART: Regular rate and rhythm. No murmur or gallop. LUNGS: Clear. EXTREMITIES: Without clubbing, cyanosis, +1 pretibial edema. ABDOMEN: Gravid. Estimated weight 6 pounds. PELVIS: Reveals 2 cm cervix, probable vertex presentation. FHTs reactive. IMPRESSION: Term intrauterine , repeat section, estimated date of confinement is 09/18/2019. PLAN: Informed consent, risks and benefits of procedure including the risk of were explained to the patient including risk of blood loss, injury to bowel, bladder, ureters; risk of infection. The patient understands these risks and wished to proceed with above operation. I have answered all her questions. Dictated By: Christie Coyne III, MD PATIENT NAME: JOHAN LOREDO WT: HP:F.CHAIM/CLAYTON/NTS Conf#: [id number]/DID#: [id number] Authenticated by Christie Coyne MD On 09/12/2019 08:43:46 AM at 0844 PATIENT NAME: JOHAN LOREDO [facility] 2019-04-18 23:12:00 [facility] ([facility] EMERGENCY PROVIDER REPORT REPORT#:[id number] REPORT STATUS: Signed DATE:04/18/19 TIME: 2311 PATIENT: JOHAN LOREDO UNIT #: [id number] ROOM/BED: AGE: 18 SEX: F PCP PHYS: Christie Coyne III, MD SERVICE AUTHOR: Chidi Chiang MD * ALL edits or amendments must be made on the electronic/computer document * HPI-General Illness Free Text HPI Notes Free Text HPI Notes 18 yrs old female 17 wks c/o nausea, vomiting (no blood). Pt mother and sister had the samething. Pt active, still eating. General Initial Greet Date/Time 04/18/192056 Presentation Chief Complaint Vomiting Review of Systems ROS Statements All systems rev neg except as marked. Complete sys rev neg except as marked. Past Medical History - Adult Stated Complaint PT STATES "I'VE BEEN HAVING N/V/D" Allergies Coded Allergies: No Known Allergies (11/24/16) Home Medications Reported Medications CHOLECALCIFEROL (VITAMIN D3) (VITAMIN D3) PNV WITH CA/IRON/FA/DHA (PRENATE ESSENTIAL) 1 CAP PO DAILY Review of Nursing Notes Rev avail, and agree Smoking status for patients 13 years old or older: Never Smoker Physical Exam Vital Signs Vital Signs First Documented: Result Date Time Pulse Ox 98 04/18 2054 B/P 127/57 04/18 2054 B/P Mean 80 04/18 2054 O2 Delivery Room air 04/18 2054 Temp 36.8 04/18 2054 Pulse 93 04/18 2054 Resp 18 04/18 2054 Last Documented: Result Date Time Pulse Ox 99 04/19 0002 B/P 104/56 04/19 0002 B/P Mean 72 04/19 0002 Temp 36.8 04/19 2 Pulse 79 04/19 0002 Resp 18 04/19 0002 O2 Delivery Room air 04/18 2054 Review of Vital Signs Reviewed Physical Exam General/Const General/Const Awake, Alert, Well appearing MS Head Head Normocephalic Eyes Eyes PERRL Ears/Nose/Throat Ears/Nose/Throat Airway patent, Mucous membranes moist, Pharynx NL MS Neck Neck Supple, No meningismus, Full range of motion, No swelling, Non-tender, No masses Resp/Chest Respiratory/Chest Breath sounds NL, Breath sounds = bilat, No respiratory distress, No rales, No rhonchi, No wheezing Cardiovascular Cardiovascular Heart rate NL, Regular rhythm, Heart sounds NL, Cap refill not delayed, Peripheral circulation NL Abdomen/GI Abdomen/GI Soft, Non-tender, No guarding, No rebound MS Back Back Inspection NL, Painless range of motion, Non-tender, No CVA tenderness Lymphatic Lymphatic No gross adenopathy MS Upper Extrem Upper Extremity/MS Inspection NL, No swelling, Non-tender, No erythema, No deformity, Neurologic intact, Vascular intact, No clubbing/cyanosis MS Wrist/Hand Wrist/Hand Inspection NL, No swelling, No erythema, Non-tender, No deformity, Neurologic intact, Vascular intact, No clubbing/cyanosis MS Lower Extrem Lower Ext/Pelvis/MS Inspection NL, No swelling, Non-tender, No erythema, No deformity, Neurologic intact, Vascular intact, No edema MS Ankle/Foot Ankle/Foot Inspection NL, No swelling, No erythema, Non-tender, No deformity, Neurologic intact, Vascular intact, No edema Skin Skin Color NL, Warm, Dry, Turgor NL Neurologic Neurologic Oriented X3, Speech NL, No motor deficits, No sensory deficits Psychiatric Psychiatric Affect NL, Mood NL, Thought content NL Interpretation Diagnostics Lab Results Interpretation Results Laboratory Tests 04/18/192117: [Embedded Image Not Available] Laboratory Tests: 04/18 2100 Chemistry Sodium (135 - 145 mEq/L) 138 Potassium (3.5 - 5.0 mEq/L) 3.1 L Chloride (100 - 115 mEq/L) 103 Carbon Dioxide (22 - 31 mEq/L) 27 Anion Gap (10 - 20) 11.40 BUN (7 - 18 mg/dL) 6 L Creatinine (0.5 - 1.0 mg/dL) 0.5 Glomerular Filtr Rate (>60 ml/min) 157 Glucose (65 - 110 mg/dL) 93 Calcium (8.4 - 10.2 mg/dL) 8.4 Total Bilirubin (0.2 - 1.0 mg/dL) 0.3 AST (15 - 37 units/L) 17 ALT (12 - 78 units/L) 16 Total Alk Phosphatase (46 - 116 units/L) 51 Total Protein (6.3 - 8.2 gm/dL) 6.5 Albumin (3.4 - 4.8 gm/dL) 2.8 L Lipase (73 - 393 units/L) 63 L Hematology WBC (6.6 - 12.1 K/mm3) 5.2 L RBC (3.45 - 5.01 M/mm3) 3.82 Hgb (10.7 - 13.9 g/dL) 11.7 Hct (32.1 - 42.1 %) 34.9 MCV (84.1 - 94.8 fL) 91 MCH (27 - 35 pg) 30.6 MCHC (32.2 - 34.1 gm/dL) 33.5 RDW (12.4 - 16.5 %) 12.7 Plt Count (133 - 385 K/mm3) 196 MPV (9.1 - 12.7 fl) 9.3 Neut % (Auto) (56.5 - 79.4 %) 62.5 Lymph % (Auto) (14.3 - 34.3 %) 23.8 Bailey % (Auto) (5.1 - 10.4 %) 11.2 H Eos % (Auto) (0.1 - 3.0 %) 1.9 Baso % (Auto) (0.1 - 1.0 %) 0.2 Neut # (Auto) (K/mm3) 3.2 Lymph # (Auto) (K/mm3) 1.2 Bailey # (Auto) (K/mm3) 0.6 Eos # (Auto) (K/mm3) 0.10 Baso # (Auto) (K/mm3) 0.0 Immature Plt Fraction (0.0 - 10.8 %) 0.0 Miscellaneous Maternal Serum HCG [id number] Urines Urine Color (YELLOW) YELLOW Urine Appearance (CLEAR) CLEAR Urine pH (5 - 9) 6.0 Ur Specific [place] (1.001 - 1.035) 1.006 Urine Protein (NEG) NEGATIVE Urine Glucose (UA) (NEG) NEGATIVE Urine Ketones (NEG) NEGATIVE Urine Blood (NEG) NEG Urine Nitrite (NEG) NEG Urine Bilirubin (NEG) NEGATIVE Urine Urobilinogen (NEG mg/dL) 4.0 H Ur Leukocyte Esterase (NEG) NEG Urine WBC (NONE SEEN #/hpf) 0-2 Ur Epithelial Cells (RARE - FEW #/HPF) RARE Urine Bacteria (RARE - FEW /HPF) MODERATE H Urine Mucus (NONE SEEN) RARE Lab Statement Laboratory studies reviewed and considered in the medical decision-making. Imaging Statement Radiographic studies reviewed and considered in the medical decision-making. Lab Imaging Statement Laboratory radiographic studies reviewed and considered in the medical decision-making. Point of Care Testing Pulse Oximetry Pulse Ox % 99 On: Room air Interpretation Interpreted by me, Pulse oximetry normal Time 1324 Re-Evaluation MDM Free Text MDM Notes Free Text MDM Notes 18 yrs old female 17 wks c/o nausea, vomiting (no blood). Pt mother and sister had the samething. Pt active, still eating. Gastroenteritis, nausea, vomiting Normal cbc, cmp, ua, lipase Iv fluid x 2 zofran x 1 Pepcid x 1 Pt felt much better, d/c home with pcp follow up. ED Course Medication(s) Ordered Medication(s) Ordered: Electrolytic, Caloric, And Ronald Sig/Mariam Start time Last Medication Dose Route Stop Time Status Admin Potassium Chloride 40 MEQ Q6H 04/18 2215 CKD 04/18 PO 06/17 2214 223 Dextrose/Sodium 1,000 ML X1ED STA 04/18 2214 DC 04/18 Chloride IV 04/18 Sodium Chloride 1,000 ML X1ED STA 04/18 2058 DC 04/18 IV 04/18 Gastrointestinal Drugs Sig/Mariam Start time Last Medication Dose Route Stop Time Status Admin Ondansetron HCl 4 MG ONCE ONE 04/18 2100 DC 04/18 IV 04/18 Famotidine 20 MG X1ED STA 04/18 2057 DC 04/18 IV 04/18 Patient Discharge Departure Vital Signs/Condition Vital Signs First Documented: Result Date Time Pulse Ox 98 04/18 2054 B/P 127/57 04/18 2054 B/P Mean 80 04/18 2054 O2 Delivery Room air 04/18 2054 Temp 36.8 04/18 2054 Pulse 93 04/18 2054 Resp 18 04/18 2054 Last Documented: Result Date Time Pulse Ox 99 04/19 0002 B/P 104/56 04/19 0002 B/P Mean 72 04/19 0002 Temp 36.8 04/19 2 Pulse 79 04/19 0002 Resp 18 04/19 0002 O2 Delivery Room air 04/18 2054 All vital signs available at the time of this entry have been reviewed. Condition Improved, Stable Clinical Impression Clinical Impression Primary Impression: Gastroenteritis Secondary Impressions: Vomiting Time of Impression 2312 Disposition Decision Discharge )( Discharged to Home Yes )( Time 2314 )( Date 04/18/19 Discharge/Care Plan Counseled Regarding Diagnosis, Lab results, Imaging studies, Prescriptions, Need for follow-up, When to return to ED Prescriptions phenergan Prescriptions Reviewed Risks, Benefits, Alternative treatment Discharge Note I have spoken with the patient and/or caregivers. I have explained the patient's condition, diagnoses and treatment plan based on the information available to me at this time. I have answered the patient's and/or caregiver's questions and addressed any concerns. The patient and/or caregivers have as good an understanding of the patient's diagnosis, condition and treatment plan as can be expected at this point. The vital signs have been stable. The patient's condition is stable and appropriate for discharge from the emergency department. The patient will pursue further outpatient evaluation with the primary care physician or other designated or consulting physician as outlined in the discharge instructions. The patient and/or caregivers are agreeable to this plan of care and follow-up instructions have been explained in detail. The patient and/or caregivers have received these instructions in written format and have expressed an understanding of the discharge instructions. The patient and/or caregivers are aware that any significant change in condition or worsening of symptoms should prompt an immediate return to this or the closest emergency department or a call to 911. at 1324 RPT #:[id number] END OF REPORT [facility]
[2024-10-06] MEDS ORDERED: MORPHINE 4 MG/ML SYR ONE (06:37)
[2024-10-06] MEDS ORDERED: ONDANSETRON 4 MG/2 ML VIAL ONE ×2 (06:37→07:24)
[2024-10-06] MEDS ORDERED: NA CHLORIDE 0.9% 1,000 ML ONE (06:37)
[2024-10-06 06:53] LABS: Absolute Eosinophils 0.2 K/uL (0-0.5); Absolute Lymphocytes (CBC) 1.8 K/uL (0.7-4.9); Absolute Monocytes 0.6 K/uL (0.1-1.3); Absolute Neutrophil 4.1 K/uL (1.8-8.0); Basophils % 0.4 % (0-1.3); Eosinophils % 2.8 % (0-4.4); Hematocrit 37.7 % (36.0-45.0); Hemoglobin 12.4 g/dL (12.0-15.0); Lymphocytes % 26.5 % (15.3-44.8); MCH 27.8 pg (27.0-35.0); MCV 84.2 fL (80-100); MPV 7.5 fL (7.6-11.3); Monocytes % 8.9 % (3.3-12.3); Neutrophils % 61.4 % (41.7-73.7); Platelets 333 thou/uL (152-406); RBC Red Blood Cell Count 4.48 M/uL (3.86-4.86); Red Cell Distribution Width 14.7 % (12.1-15.2)
[2024-10-06 07:06] LABS: Albumin 3.4 g/dL (3.4-5.0); Albumin/Globulin Ratio 0.9 (1.1-1.8); Bilirubin Total 0.5 mg/dL (0.2-1.0); Protein, Total 7.4 g/dL (6.4-8.2)
[2024-10-06] MEDS ORDERED: FENTANYL CITR 100 MCG/2 ML ONE ×2 (07:24→08:19)
[2024-10-06] MEDS ORDERED: POTASSIUM CL SA 10 MEQ TAB PO ONE (07:36)
[2024-10-06 08:02] LABS: Specific Gravity 1.022 (1.005-1.030)
[2024-10-06 08:04] LABS: Specific Gravity 1.022 (1.005-1.030); Sqamous Epithelial <5 /HPF (None Seen); Urine Bacteria None Seen /HPF (<20); Urine Bilirubin NEGATIVE (Negative); Urine Blood Negative (Negative); Urine Clarity Clear (Clear); Urine Color Light-Yellow (Yellow); Urine Culture Reflex Order NOT NEEDED; Urine Glucose NEGATIVE (Negative); Urine Ketones NEGATIVE (Negative); Urine Microscopic Reflex YN ORDER UMIC; Urine Mucus Slight /HPF (None Seen); Urine Nitrite NEGATIVE (Negative); Urine Protein NEGATIVE (Negative); Urine RBC None Seen /HPF (None Seen); Urine Urobilinogen Normal (Normal); Urine WBC <5 /HPF (<5); Urine pH 5.5 (5.0-7.0)
--- NOTE | 2024-10-06 08:37 | RAD REPORT ---
EXAMINATION: CT ABDOMEN AND PELVIS WITH CONTRAST CLINICAL INDICATION: Female, 24 years old.ABD PAIN TECHNIQUE: CT abdomen and pelvis was performed, after the administration of IV contrast, [facility]. Axial, sagittal and coronal reconstructions were obtained. One or more of the following dose reduction techniques were used: Automated exposure control, adjustment of the mA and/o r kV according to patient size, and/or iterative reconstruction. Unless otherwise specified, incidental findings do not require dedicated imaging follow-up. [id number]. COMPARISON: No prior exam. FINDINGS: LOWER CHEST: The visualized lung bases are clear. LIVER: Normal in size and contour. No focal lesion. GALLBLADDER/BILE DUCT: No biliary ductal dilatation.? PANCREAS: No significant abnormality. SPLEEN: Normal size. No focal lesion. ADRENALS: Normal; no mass. KIDNEYS AND URETERS: Normal size and contour. No hydronephrosis. GASTROINTESTINAL TRACT: Moderate stool in the ascending, transverse, and descending colon. There is w all thickening of the descending colon with stranding as well as the sigmoid and rectum. No appendicitis. PERITONEUM: Trace fluid at the left paracolic gutter. Small fat-containing umbilical and ventral zachery ias. LYMPH NODES: No lymphadenopathy. ABDOMINAL AORTA AND OTHER VESSELS: Normal caliber aorta and IVC. URINARY BLADDER: Normal contour. REPRODUCTIVE ORGANS: Probable uterine fibroid along the right aspect of the uterus. Right adnexal cys t measuring 19 mm which is likely physiologic in a patient of this age group does not require follow-up. MUSCULOSKELETAL: No acute or suspicious osseous abnormality. ADDITIONAL FINDINGS: None. IMPRESSION: Colitis beginning at the descending colon and extending to the rectum. Moderate formed stool in the p roximal two thirds of the colon.
[2024-10-06] MEDS ORDERED: CIPROFLOXACIN HCL 500 MG TAB ONE (09:34)
[2024-10-06] MEDS ORDERED: METRONIDAZOLE 500mg IVPB 500 MG/100 ML BAG IV ONE (09:35)
--- NOTE | 2024-10-06 09:46 | EDPHYS ---
Physician Documentation [facility] Name: Lisa Craig Age: 24 yrs Sex: Female : 2000 Arrival Date: 10/06/2024 Time: 06:07 Bed 8 Private MD: ED Physician Sonya Raymundo HPI: 10/06 06:42 This 24 yrs old Female presents to ER via Ambulatory with complaints of sp3 Nausea/Vomiting, Low Back Pain, Abdominal Pain. 06:42 24-year-old female with no past medical history, by 3 months now presents sp3 with anterior abdominal pain suprapubic radiating bilaterally around to the lower back. She denies any symptoms, vaginal bleeding or discharge with last menstrual cycle approximately 3 weeks ago, diarrhea, known sick contacts or fever. She does endorse vomiting today only. No blood or mucus in her emesis. Review of systems otherwise negative.. 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 - Infectious Disease History:: Denies. - Social history:: Smoking status: Patient denies any tobacco usage or history of. ROS: 06:42 Constitutional: Negative for fever, chills, and weight loss, Eyes: Negative for injury, sp3 pain, redness, and discharge, ENT: Negative for injury, pain, and discharge, Neck: Negative for injury, pain, and swelling, Cardiovascular: Negative for chest pain, palpitations, and edema, Respiratory: Negative for shortness of breath, cough, wheezing, and pleuritic chest pain, MS/Extremity: Negative for injury and deformity, Skin: Negative for injury, rash, and discoloration, Neuro: Negative for headache, weakness, numbness, tingling, and seizure, Psych: Negative for depression, anxiety, suicide ideation, homicidal ideation, and hallucinations, Allergy/Immunology: Negative for hives, rash, and allergies, Endocrine: Negative for neck swelling, polydipsia, polyuria, polyphagia, and marked weight changes, Hematologic/Lymphatic: Negative for swollen nodes, abnormal bleeding, and unusual bruising, 06:42 All other systems are negative, Exam: 06:43 Constitutional: This is a well developed, well nourished patient who is awake, alert, sp3 and in no acute distress. Head/Face: Normocephalic, atraumatic. Eyes: Pupils equal round and reactive to light, extra-ocular motions intact. Lids and lashes normal. Conjunctiva and sclera are non-icteric and not injected. Cornea within normal limits. Periorbital areas with no swelling, redness, or edema. ENT: Nares patent. No nasal discharge, no septal abnormalities noted. External auditory canals are clear. Oropharynx with no redness, swelling, or masses, exudates, or evidence of obstruction, uvula midline. Mucous membranes moist. Neck: Trachea midline, no thyromegaly or masses palpated, and no cervical lymphadenopathy. Supple, full range of motion without nuchal rigidity, or vertebral point tenderness. No Meningismus. Chest/axilla: Normal chest wall appearance and motion. Nontender with no deformity. No lesions are appreciated. Cardiovascular: Regular rate and rhythm with a normal S1 and S2. No gallops, murmurs, or rubs. Normal PMI, no JVD. No pulse deficits. Respiratory: Lungs have equal breath sounds bilaterally, clear to auscultation and percussion. No rales, rhonchi or wheezes noted. No increased work of breathing, no retractions or nasal flaring. Skin: Warm, dry with normal turgor. Normal color with no rashes, no lesions, and no evidence of cellulitis. MS/ Extremity: Pulses equal, no cyanosis. Neurovascular intact. Full, normal range of motion. Neuro: Awake and alert, GCS 15, oriented to person, place, time, and situation. Cranial nerves II-XII grossly intact. Motor strength 5/5 in all extremities. Sensory grossly intact. Cerebellar exam normal. Normal gait. Psych: Awake, alert, with orientation to person, place and time. Behavior, mood, and affect are within normal limits. 06:43 Abdomen/GI: Suprapubic pain to palpation without peritoneal signs, rebound or guarding., Vital Signs: 06:18 BP 116 / 69; Pulse 92; Resp 18; Temp 98; Pulse Ox 100% ; Weight 77.11 kg; Height 5 ft. vc1 5 in. ; Pain 10/10; 07:00 BP 112 / 64; Pulse 82; Resp 16; Pulse Ox 97% ; bp 07:56 Pulse 81; Pulse Ox 100% on R/A; ap3 08:32 BP 117 / 77; Pulse 87; Resp 16; Pulse Ox 98% on R/A; Pain 10/10; ap3 06:18 Body Mass Index 28.29 (77.11 kg, 165.1 cm) vc1 06:18 Pain Scale: Adult vc1 08:32 Pain Scale: Adult ap3 Fay Coma Score: 06:45 Eye Response: spontaneous(4). Motor Response: obeys commands(6). Verbal Response: dd2 oriented(5). Total: 15. MDM: 06:16 Medical Screening Exam initiated sp3 06:43 Data reviewed: vital signs, nurses notes, lab test result(s), radiologic studies. ED sp3 course: 24-year-old female with suprapubic abdominal pain radiating around to the back. Differential diagnosis includes UTI/pyelonephritis spectrum, kidney stone/ureterolithiasis spectrum, GI pathology, among others. Workup will include CT scan of the abdomen pelvis, general labs, UA and hCG, and general supportive care with IV fluids, morphine and Zofran IV. Patient will be signed out to daytime physician for final reevaluation and disposition.. 09:34 Differential diagnosis: Colitis and constipation from GLP-1s. ED course: Discussed bo1 stool management - and treatment with abx. Pt to get given initial doses.. 12 06:25 Order name: CBC with Diff; Complete Time: 07:19 sp3 10/06 06:25 Order name: CMP; Complete Time: 07:19 sp3 10/06 06:25 Order name: Lipase; Complete Time: 07:19 sp3 10/06 06:25 Order name: Test, Urine; Complete Time: 08:19 sp3 10/06 06:25 Order name: Urinalysis w/ reflexes; Complete Time: 08:19 sp3 10/06 06:25 Order name: Lactate w/ 2H reflex if indic.; Complete Time: 07:19 sp3 10/06 06:25 Order name: CT Abd/Pelvis - IV Contrast Only; Complete Time: 09:21 sp3 10/06 06:25 Order name: IV Saline Lock; Complete Time: 06:44 sp3 10/06 06:25 Order name: Labs collected and sent; Complete Time: 06:44 sp3 Administered Medications: 06:44 Drug: Ondansetron IVP 4 mg IVP once; over 2 minutes Route: IVP; Site: right antecubital;cp4 06:54 Follow up: Response: No adverse reaction cp4 06:44 Drug: morphine IVP or IV 4 mg IVP once over 4 mins Route: IVP; Infused Over: 4 mins; cp4 Site: right antecubital; 06:55 Follow up: Response: No adverse reaction; Pain is decreased cp4 06:44 Drug: NS 0.9% IV 1000 ml IV at 1 bolus Per protocol; to be given as a bolus over 60 cp4 minutes Route: IV; Rate: 1 bolus; Site: right antecubital; 10:17 Follow up: IV Status: Completed infusion; IV Intake: 1000ml ap3 07:20 Drug: fentaNYL (PF) IVP 50 mcg IVP once Route: IVP; Site: right antecubital; bp 09:31 Follow up: Response: No adverse reaction; Pain is unchanged, physician notified ap3 07:20 Drug: Ondansetron IVP 4 mg IVP once; over 2 minutes Route: IVP; Site: right antecubital;bp 09:31 Follow up: Response: No adverse reaction ap3 07:30 Drug: Potassium Chloride PO 40 mEq PO once Route: PO; bp 09:31 Follow up: Response: No adverse reaction ap3 08:32 Drug: fentaNYL (PF) IVP 50 mcg IVP once Route: IVP; Site: right antecubital; ap3 09:31 Follow up: Response: No adverse reaction; Pain is decreased ap3 09:41 Drug: metroNIDAZOLE IVPB 500 mg 100 ml IVPB at 200 ml/hr once over 30 mins Volume: 100 ap3 ml; Route: IVPB; Rate: 200 ml/hr; Infused Over: 30 mins; Site: right antecubital; 10:16 Follow up: IV Status: Completed infusion; IV Intake: 100ml ap3 09:41 Drug: Ciprofloxacin PO 500 mg PO once Route: PO; ap3 09:50 Follow up: Response: No adverse reaction ap3 09:50 Drug: Magnesium Citrate PO Liquid 300 ml PO once Route: PO; ap3 10:17 Follow up: Response: Medication administered at discharge. ap3 Disposition Summary: 10/06/24 09:46 Discharge Ordered Notes: Location: Home bo1 Problem: new bo1 Symptoms: are unchanged bo1 Condition: Stable bo1 Diagnosis - Constipation, unspecified bo1 - Slow transit constipation bo1 - Left sided colitis bo1 Followup: bo1 - With: Private Physician - When: Upon discharge from the Emergency Department - Reason: Recheck today's complaints, Continuance of care Discharge Instructions: - Discharge Summary Sheet bo1 - Constipation, Adult, [id number] bo1 - Colitis bo1 Forms: - Medication Reconciliation Form bo1 - Antibiotic Education bo1 - Prescription Opioid Use bo1 - Patient Portal Instructions bo1 - Leadership Thank You Letter bo1 Prescriptions: - Flagyl 500 mg Oral Tablet - take 1 tablet ORAL route every 8 hours for 10 days; 30 tablet; Refills: 0, bo1 Product Selection Permitted - Cipro 500 mg Oral Tablet - take 1 tablet ORAL route every 12 hours for 7 days; 14 tablet; Refills: 0, bo1 Product Selection Permitted Signatures: Dispatcher [employer] Marcela Andre RN RN aa5 Heriberto Noyola RN RN Mindi Sanabria RN RN ap3 Sonya Raymundo MD MD sp3 Zamzam Alfaro RN RN vc1 Lori Pete cp4 Parish Mccarty MD MD bo1 Corrections: (The following items were deleted from the chart) 06:20 06:19 PSHx: None; vc1 vc1
--- NOTE | 2024-10-06 09:46 | ER ---
Nurse's Notes [facility] Name: Lisa Craig Age: 24 yrs Sex: Female : 2000 Arrival Date: 10/06/2024 Time: 06:07 Bed 8 Private MD: Diagnosis: Constipation, unspecified;Slow transit constipation;Left sided colitis Presentation: 10/06 06:18 Chief complaint: Patient states: woke up with stomach pain that radiates to lower back vc1 with N/V. Coronavirus screen: Client denies travel out of the [place] in the last 14 days. At this time, the client does not indicate any symptoms associated with coronavirus-19. Ebola Screen: Patient negative for fever greater than or equal to 101.5 degrees Fahrenheit, and additional compatible Ebola Virus Disease symptoms Patient denies exposure to infectious person. Patient denies travel to an Ebola-affected area in the 21 days before illness onset. No symptoms or risks identified at this time. Initial Sepsis Screen: Does the patient meet any 2 criteria? No. Patient's initial sepsis screen is negative. Does the patient have a suspected source of infection? No. Patient's initial sepsis screen is negative. Risk Assessment: Do you want to hurt yourself or someone else? Patient reports no desire to harm self or others. Onset of symptoms was October 06, 2024. Care prior to arrival: Medication(s) given: zofran and CT. 06:18 Method Of Arrival: Ambulatory vc1 06:18 Acuity: LIZ 3 vc1 Triage Assessment: 06:21 General: Appears in no apparent distress. uncomfortable, well groomed, well developed, vc1 well nourished, Behavior is cooperative, restless. Pain: Complains of pain in suprapubic area, right lower quadrant and left lower quadrant Pain radiates to back Pain currently is 10 out of 10 on a pain scale. Quality of pain is described as sharp, Noted to be guarding, moaning, restless. EENT: No deficits noted. No signs and/or symptoms were reported regarding the EENT system. Neuro: Level of Consciousness is awake, alert, obeys commands, Oriented to person, place, time, situation, Appropriate for age. Cardiovascular: Capillary refill < 3 seconds Patient's skin is warm and dry. Respiratory: Airway is patent Respiratory effort is even, unlabored, Respiratory pattern is regular, symmetrical. GI: Abdomen is round non-distended, Reports lower abdominal pain, nausea, Pain is 10 out of 10 on a pain scale. vomiting. : No deficits noted. Denies urinary frequency. Derm: Skin is intact, is healthy with good turgor, Skin is dry, Skin is normal, Skin temperature is warm. Musculoskeletal: Circulation, motion, and sensation intact. Range of motion: intact in all extremities. 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 - Infectious Disease History:: Denies. - Social history:: Smoking status: Patient denies any tobacco usage or history of. Screenin:21 [facility] ED Fall Risk Assessment (Adult) History of falling in the last 3 months, vc1 including since admission No falls in past 3 months (0 pts) Confusion or Disorientation No (0 pts) Intoxicated or Sedated No (0 pts) Impaired Gait No (0 pts) Mobility Assist Device Used No (0 pt) Altered Elimination No (0 pt) Score/Fall Risk Level 0 - 2 = Low Risk Oriented to surroundings, Maintained a safe environment, Educated pt \T\ family on fall prevention, incl call for assistance when getting out of bed. Abuse screen: Denies threats or abuse. Nutritional screening: No deficits noted. Tuberculosis screening: No symptoms or risk factors identified. Assessment: 06:45 Reassessment: SEE TRIAGE ASSESSMENT FOR FULL ASSESSMENT. dd2 07:00 Reassessment: RECD REPORT FROM AMADOU TRAN. 24YO HF P/W ABD PAIN AND N/V. bp 08:34 Reassessment: Patient and/or family updated on plan of care and expected duration. Pain ap3 level reassessed. Patient is alert, oriented x 3, equal unlabored respirations, skin warm/dry/pink. General: Appears uncomfortable, Behavior is calm, cooperative, appropriate for age. Pain: Complains of pain in suprapubic area, right lower quadrant and left lower quadrant lower back. Neuro: Level of Consciousness is awake, alert, obeys commands, Oriented to person, place, time, situation, Appropriate for age. Cardiovascular: Patient's skin is warm and dry. Respiratory: Airway is patent Respiratory effort is even, unlabored, Respiratory pattern is regular, symmetrical. GI: Reports lower abdominal pain, nausea. 09:50 General: awaiting completion of antibiotics prior to discharge. ap3 Vital Signs: 06:18 BP 116 / 69; Pulse 92; Resp 18; Temp 98; Pulse Ox 100% ; Weight 77.11 kg; Height 5 ft. vc1 5 in. ; Pain 10/10; 07:00 BP 112 / 64; Pulse 82; Resp 16; Pulse Ox 97% ; bp 07:56 Pulse 81; Pulse Ox 100% on R/A; ap3 08:32 BP 117 / 77; Pulse 87; Resp 16; Pulse Ox 98% on R/A; Pain 10/10; ap3 06:18 Body Mass Index 28.29 (77.11 kg, 165.1 cm) vc1 06:18 Pain Scale: Adult vc1 08:32 Pain Scale: Adult ap3 [place] Coma Score: 06:45 Eye Response: spontaneous(4). Motor Response: obeys commands(6). Verbal Response: dd2 oriented(5). Total: 15. ED Course: 06:10 Patient arrived in ED. gm2 06:16 Sonya Raymundo MD is Attending Physician. sp3 06:19 Triage completed. vc1 06:21 Arm band placed on left wrist. vc1 06:44 CBC with Diff Sent. dd2 06:44 CMP Sent. dd2 06:44 Lipase Sent. dd2 06:44 Lactate w/ 2H reflex if indic. Sent. dd2 06:44 No provider procedures requiring assistance completed. Initial lab(s) drawn, by ED dd2 staff, sent to lab. Inserted saline lock: 20 gauge in right antecubital area, using aseptic technique. Blood collected. Flushed with 10 mL NS. Patient maintains SpO2 saturation greater than 95% on room air. 06:45 Patient has correct armband on for positive identification. Bed in low position. Call dd2 light in reach. Side rails up X 1. Client placed on continuous cardiac and pulse oximetry monitoring. NIBP monitoring applied. 07:07 Heriberto Noyola, RN is Primary Nurse. bp 08:24 CT Abd/Pelvis - IV Contrast Only In Process Unspecified. EDMS 08:32 Patient requests pain medication. ap3 10:17 Provided Education on: call light education. ap3 10:17 IV discontinued, intact, bleeding controlled, No redness/swelling at site. Pressure ap3 dressing applied. Administered Medications: 06:44 Drug: Ondansetron IVP 4 mg IVP once; over 2 minutes Route: IVP; Site: right antecubital;cp4 06:54 Follow up: Response: No adverse reaction cp4 06:44 Drug: morphine IVP or IV 4 mg IVP once over 4 mins Route: IVP; Infused Over: 4 mins; cp4 Site: right antecubital; 06:55 Follow up: Response: No adverse reaction; Pain is decreased cp4 06:44 Drug: NS 0.9% IV 1000 ml IV at 1 bolus Per protocol; to be given as a bolus over 60 cp4 minutes Route: IV; Rate: 1 bolus; Site: right antecubital; 10:17 Follow up: IV Status: Completed infusion; IV Intake: 1000ml ap3 07:20 Drug: fentaNYL (PF) IVP 50 mcg IVP once Route: IVP; Site: right antecubital; bp 09:31 Follow up: Response: No adverse reaction; Pain is unchanged, physician notified ap3 07:20 Drug: Ondansetron IVP 4 mg IVP once; over 2 minutes Route: IVP; Site: right antecubital;bp 09:31 Follow up: Response: No adverse reaction ap3 07:30 Drug: Potassium Chloride PO 40 mEq PO once Route: PO; bp 09:31 Follow up: Response: No adverse reaction ap3 08:32 Drug: fentaNYL (PF) IVP 50 mcg IVP once Route: IVP; Site: right antecubital; ap3 09:31 Follow up: Response: No adverse reaction; Pain is decreased ap3 09:41 Drug: metroNIDAZOLE IVPB 500 mg 100 ml IVPB at 200 ml/hr once over 30 mins Volume: 100 ap3 ml; Route: IVPB; Rate: 200 ml/hr; Infused Over: 30 mins; Site: right antecubital; 10:16 Follow up: IV Status: Completed infusion; IV Intake: 100ml ap3 09:41 Drug: Ciprofloxacin PO 500 mg PO once Route: PO; ap3 09:50 Follow up: Response: No adverse reaction ap3 09:50 Drug: Magnesium Citrate PO Liquid 300 ml PO once Route: PO; ap3 10:17 Follow up: Response: Medication administered at discharge. ap3 Medication: 06:23 VIS not applicable for this client. vc1 Intake: 10:16 IV: 100ml; Total: 100ml. ap3 10:17 IV: 1000ml; Total: 1100ml. ap3 Outcome: 09:46 Discharge ordered by . bo1 10:16 Discharged to home ambulatory, with family, ap3 10:16 Condition: good 10:16 Discharge instructions given to patient, Instructed on discharge instructions, follow up and referral plans. medication usage, Demonstrated understanding of instructions, follow-up care, medications, Prescriptions given X 2, 10:17 Patient left the ED. ap3 Signatures: Dispatcher [employer] EDMS Heriberto Noyola RN RN bp Prokisch, Amanda, RN RN ap3 Sonya Raymundo MD MD sp3 Zamzam Alfaro RN RN vc1 Lori Pete cp4 Angeli Vargas gm2 Parish Mccarty MD MD bo1 AMADOU DANIELLE RN RN dd2 Corrections: (The following items were deleted from the chart) 06:20 06:19 PSHx: None; vc1 vc1
[2024-10-06] MEDS ORDERED: MAGNESIUM CITRATE 300 ML BOT ONE (09:49)
[2024-10-06 10:27] VITALS: TEMP 98
[2024-10-06 10:44] VITALS: BP 117/77; O2SAT 98
== END 2024-10-06 10:17 | disposition home or self-care (01) ==
LOC: ER 06:07
DX: K59.01 Slow transit constipation (principal); K51.50 Left sided colitis without complications
CPT/HCPCS: 96365; 96361; 85025; 81001; 36415; 81025; 83605; 83690; 80053; 74177; 96375; 99284; Q9967; J3010 ×2; J2405 ×2; J7030

== ENCOUNTER 2024-10-06 21:30 | Inpatient (IN) | payer BC ==
--- OUTSIDE RECORDS SUMMARY | 2024-10-06 21:33 | XMS REPORT | Continuity of Care Document ---
Author Name Unknown Address [address] [facility] [address] [place] [address] [facility] thconnect Address [address] [facility] [address] [place] [address] Care Team Providers Care Crown Pouncer Name Role Phone Lenora Lester Attending Clinician Narciso Ramesh Attending Clinician Lenora Mac Admitting Clinician Christie Ivory Admitting Clinician Unavailable Payers Payer Name Policy Type Policy Number Effective Date Expirati on Date Source Allergies, Adverse Reactions, Alerts Allergy Name Allergy Type Status Severity Reaction(s) Onset Date Inactive Date Treating Clinician Comments Source No Known Drug Allergie s DA Active U 07-01 00:00: 00 [facility] No Known Allergie s DA Active U 2018-11 00:00: 00 [facility] No Known Allergie s DA Active U 2018-11 00:00: 00 [facility] No Known Allergie s DA Active U 11-24 00:00: 00 [facility] Procedures Procedure Date / Time Performed Performing Clinicia n Source [id number] 2024-07-01 00:00:00 MONMA.05 [facility] Encounters Start Date/Time End Date/Time Encounter Type Admission Type Attending Clinicians Care Facility Care Department Encounter ID Source 2024-07-01 04:39:00 2024-07-03 11:48:00 Inpatient Lenora Govea [facility] [id number] [facility] 2024-02-22 14:17:00 2024-02-22 17:05:00 Emergency EM Narciso Cuello [facility] GHISLA[facility] [id number] [facility] Results Test Description Test Time Test Comments Results Result Co mments Source AG HEPATITIS B [id number] 13:42:00* Test Item Value Reference Range Interpretation Comme nts AG HEPATITIS B SURFACE (test code = HBSAG) NON REACTIVE NONREACTIVE AB HEPATITIS C [id number] 13:42:00* Test Item Value Reference Range Interpretation Comme nts AB HEPATITIS C (test code = HCVAB) NONREACTIVE NONREACTIVE SIGNAL TO CUTOFF (test code = CUTOFF) <0.02 <0.80 N AB [id number] 13:42:00* Test Item Value Reference Range Interpretation Comme nts AB TREPONEMA (test code = TREPAB) NONREACTIVE NONREACTIVE AB HIV 1 13:42:00* Test Item Value Reference Range Interpretation Comme nts AB HIV 1 2 (test code = NZD36HL) NONREACTIVE NONREACTIVE Done by Siemens DancingAnchovyaur 4th Gen HIV Ag/Ab Combo Screen COMPREHENSIVE METABOLIC [id number] 12:57:00* Test Item Value Reference Range Interpretation [...] thepatient's age is <18 years. CBC W/AUTO [id number] 12:30:00* Test Item Value Reference Range Interpretation [...] code = BA#) 0.0 K/mm3 - US [id number] 16:52:00 [facility] : 2000 Sex: F Patient Name: JOHAN LOREDO Unit No: [id number] EXAMS: CPT CODE: [id number] US LTD 58763 EXAM: - US LTD: 02/22/2024 3:22 PM [...] (1651) t.SDR.MV7 Orig Print D/T: S: 02/22/2024 (184) [facility] N OLLA: JOHAN LOREDO Radiology Department PHYS: Narciso Sutton MD [address] : 2000 AGE: 23 SEX: [place] [address] LOC: KatelynERS PHONE #: [phone] EXAM DATE: 02/22/2024 STATUS: REG ER FAX #: [phone] RAD NO: Page 1 Signed Report Patient Name: JOHAN CARBONE Unit No: [id number] EXAMS: CPT CODE: [id number] LTD 00882 (Continued) [facility] NAME: JOHAN LOREDO Radiology Department PHYS: Narciso Sutton MD [address] : 2000 AGE: 23 SEX: [place] [address] LOC: K[facility]nERS PHONE #: [phone] EXAM DATE: 02/22/2024 STATUS: REG ER FAX #: [phone] RAD NO: Page2 Signed ReportRUPTURE OF [id number] 16:03:00* Test Item Value Reference Range Interpretation Comme nts RUPTURE OF MEMBRANES (test c ode = ROM) NON-RUPTURED UA RFLX MICR CULT IF [id number] 15:27:00* Test Item Value Reference Range Interpretation [...] Suprapubic PainSpecimen Description: CLEAN CATCH COMPREHENSIVE METABOLIC [id number] 15:26:00* Test Item Value Reference Range Interpretation [...] thepatient's age is <18 years. CBC W/AUTO [id number] 15:10:00* Test Item Value Reference Range Interpretation [...] (test code = BA#) 0.0 K/mm3 HGB [id number] 08:35:00* Test Item Value Reference Range Interpretation Comme nts HEMOGLOBIN (test code = HGB) 9.5 g/dL 10.7-13.9 L Results verified by repeat analysis HEMATOCRIT (test code = HCT) 29.6 % 32.1-42.1 L Results verified by repeat analysis AG HEPATITIS B [id number] 16:23:00* Test Item Value Reference Range Interpretation Comme nts AG HEPATITIS B SURFACE (test code = HBSAG) NONREACTIVE NONREACTIVE IS CONSENT FORM SIGNED FOR HIV TESTING? YAB HEPATITIS C [id number] 16:23:00* Test Item Value Reference Range Interpretation Comme nts AB HEPATITIS C (test code = HCVAB) NONREACTIVE NONREACTIVE SIGNAL TO CUTOFF (test code = CUTOFF) <0.02 <0.80 N IS CONSENT FORM SIGNED FOR HIV TESTING? YAB [id number] 16:23:00* Test Item Value Reference Range Interpretation Comme nts AB TREPONEMA (test code = TREPAB) NONREACTIVE NONREACTIVE IS CONSENT FORM SIGNED FOR HIV TESTING? YAB HIV 1 16:23:00* Test Item Value Reference Range Interpretation Comme nts AB HIV 1 2 (test code = KGQ88QY) NONREACTIVE NONREACTIVE Done by Siemens DancingAnchovyauAlloy Digital 4th Gen HIV Ag/Ab Combo Screen IS CONSENT FORM SIGNED FOR HIV TESTING? YCBC W/AUTO [id number] 13:50:00* Test Item Value Reference Range Interpretation [...] code = PLTMR) NORMAL NORMAL URINALYSIS W/O [id number] 13:46:00* Test Item Value Reference Range Interpretation Comme nts UA GLUCOSE DIPSTICK (test co de = DGLUU) NEGATIVE NEGATIVE UA KETONE DIPSTICK (test cod e = KETU) 1+ NEGATIVE UA PROTEIN DIPSTICK (test co de = PROU) NEGATIVE NEGATIVE IS NURSE PERFORMING TEST? N- US PREG AFTER [id number] 12:01:00Patient Name: JOHAN LOREDO Unit No: [id number] EXAMS: CPT CODE: [id number] US PREG AFTER [address] [facility] [address] [place] [place], [place] [address] OBSTETRICAL ULTRASOUND REPORT ---- Pat. Name: JOHAN LOREDO Pat. No: [id number] Study Date: 04/27/2019 10:50am , Age: 07 2000, 18 Pregnancies: 2, Para 1 LMP: 12/14/2018 GA by LMP: 19w1d GA by US: 19w1d GA Selected: 19w1d (LMP) CLAY: 09/20/2019 Referring MD: CHRISTIE COYNE Fishing Instructor: Nae Chavez RDMS CPT4: [id number] Admitting MD: CHRISTIE COYNE MHist/Ind: 1ST SCAN ANATOMY ME ASUREMENTS AGE GROWTH EVALUATION Measurement GA Range Srce %for GA Ratios ----- ---- ------- BPD 4.5 cm 19w4d (44b2e-99x8d) Hadl BPD 70% FL/BPD 0.68 HC 16.6 cm 19w1d (17w4d- 20w6d) Hadl HC 53% FL/AC 0.23 APD 3.8 cm APD HC/AC 1.27 (1.06 - 1.25* TAD 4.5 cm TAD CI 0.81 (0.70 - 0.86) AC 13.1 cm 18w2d (98l8z-59c3e) Hadl AC 32% FL 3.1 cm 19w1d (54o2o-61t5k) Hadl FL 50% HL 2.7 cm 18w4d (23f8e-29v3c) Chidi HL 42% GA for sonogram 19w1d (00l8a-15v1b) Weight Estimate: based on (BPD,HC,AC,FL) Hadlock Weight: 272 gm (232-311) Hadlock : 0lbs, 9oz Cervical Length: 3.2 cm Heart Rate: 151 bpm MATERNAL ANATOMY Ovaries LxHxW (cm) Right 2.1 x 1.7 x 2.6 Vol: 4.9cc Left 2.5 x 0.9 x 2.3 Vol: 2.7cc CLINICAL SUMMARY Type of Gestation: Bacon Intrauterine in vertex presentation. size is appropriate for gestational age. motion and organs seen: heart motion seen somatic activity observed body and limb movementsseen Four chamber heart observed Left ventricular outflow tract (LVOT) seen [facility] NAME: JOHAN LOREDO Radiology Department PHYS: Christie Laguerre III, MD [address] : 2000 AGE: 18 SEX: Daysi [place], [place] [address] LOC: KatelynRAD PHONE #: [phone] EXAM DATE: 04/27/2019 STATUS: REG CLI FAX #: [phone] RAD NO: Page 1 Signed Report (CONTINUED) Patient Name: JOHAN LOREDO Unit No: [id number] EXAMS: CPT CODE: [id number] US PREG AFTER TRI 92653 (Continued) Right ventricular outflow tract (RVOT) seen Normal intracranial anatomy seen Umbilical cord insertion in fetus seen stomach, Renal Fossa, Bladder and Spine seen Three vessel umbilical cord noted abnormalities observed: None seen at this exam Placental location: Posterior Placental maturity : Grade 1 There is no evidence of placenta previa. Amniotic fluid vo lume is normal. Uterus and adnexa: No significant abnormality is seen. Thank you for allowing us toparticipate in the care of this patient. Joshua Johnson M.D. Electronic Bwfxbylvn53/24/2019 12:01pm at 1201 Reported and signed by: Joshua Johnson MD CC: Christie Coyne III, MD Technologist: Nae Chavez RDMS Probe: Trnscrbd D/ (1201) MarinoAJ13 Orig Print D/T: S: 04/27/2019 (1201) [facility] NAME: JOHAN LOREDO Radiology Department PHYS: Christie Laguerre III, MD [address] : 2000 AGE: 18 SEX: [place], [place] [address] LOC: [facility]nRAD PHONE #: [phone] EXAM DATE: 04/27/2019 STATUS: REG CLI FAX #: [phone] RAD NO: Page 2 Signed Report PatientName: JOHAN LOREDO Unit No: [id number] EXAMS: CPT CODE: [id number] US PREG AFTER TRI 19596 (Continued) [facility] NAME: GERTRUDEJOHAN Radiology Department PHYS: Christie Laguerre III, MD [address] : 2000 AGE: 18 SEX: [place], [place] [address] LOC: K[facility]nRAD PHONE #: [phone] EXAM DATE: 04/27/2019 STATUS: REG CLI FAX #: [phone] RAD NO: Page 3 Signed ReportHCG [id number] 22:17:00 * Test Item Value Reference Range Interpretation Comme nts HCG SERUM (test code = HCG) [address] INTERPRETATION:V ALUES BETWEEN 15-20 milliInternational units/mL NEED TO BERETESTED WITHIN 48 HOURS. All units for these ranges are in milliInternationalunits/mL0-1 WK AFTER CONCEPTION 0-50 1-2 WKS AFTER CONCEPTION 40-3002-3 WKS AFTER CONCEPTION 100-1,0003-4 WKS AFTER CONCEPTION 500-6,0001-2 MONTHS AFTER CONCEPTION 5,000-200,0002-3 MONTHS AFTER CONCEPTION 10,000-100,0002ND TRIMESTER 3,000-50,0003RD TRIMESTER 1,000-50,000 SPECIMENS WITH AN HCG LEVEL FROM 0-6 milliInternationalunits/mL SHOULD BE CONSIDERED NEGATIVE COMPREHENSIVE METABOLIC [id number] 21:58:00* Test Item Value Reference Range Interpretation [...] code = ALKP) 51 units/L 46-116 N [id number] 21:58:00* Test Item Value Reference Range Interpretation Comme nts LIPASE (test code = LIP) 63 units/L 73-393 L UA RFLX MICR CULT IF [id number] 21:39:00* Test Item Value Reference Range Interpretation [...] = MUCU) RARE NONE SEEN CBC W/AUTO [id number] 21:34:00* Test Item Value Reference Range Interpretation [...] Notes Date/Time Note Provider Source 2024-08-28 19:40:00 [facility]) OB Disch REPORT#:[id number] REPORT STATUS: Signed REPORT INITIALIZATION DATE:08/28/24 TIME: 1939 PATIENT: JOHAN LOREDO UNIT #: [id number] ROOM/BED: [address] : [birth year] AGE: 24 SEX: F [...] Physician: Attending Physician: Lenora Lester MD at 1939 RPT #:[id number] END OF REPORT [facility] 2024-07-05 20:51:00 [id number] [facility] [address] [place], [place] [address] PATIENT NAME: JOHAN LOREDO ADMIT DATE: 07/01/24 ACCOUNT NO: [id number] ROOM NO: F.4670 AGE: 24 SEX: F ADMITTING PHYSICIAN: Lenora Lester MD ATTENDING PHYSICIAN: Lenora Lester MD Provider Query QUERY TEXT: Condition OB Blood Loss 360MD Query related questions should be directed to: [facility] Coding Query Hotline Based on your clinical [...] AM at 2051 PATIENT NAME: JOHAN LOREDO [facility] 2024-07-03 07:07:00 [facility] ([facility]) OB Postpart Progr Note REPORT#:[id number] REPORT STATUS: Signed REPORT INITIALIZATION DATE:07/03/24 TIME: 706 PATIENT: JOHAN LOREDO UNIT #: [id number] ROOM/BED: [address] : [birth year] AGE: 24 SEX: F [...] routine care, circumcision today at 0749 RPT #:[id number] END OF REPORT [facility] 2024-07-02 07:43:00 [facility] ([facility]) OB Postpart Progr Note REPORT#:[id number] REPORT STATUS: Signed REPORT INITIALIZATION DATE:07/02/24 TIME: 742 PATIENT: JOHAN LOREDO UNIT #: [id number] ROOM/BED: [address] : [birth year] AGE: 24 SEX: F [...] Result Date Time B/P Mean 66.0 07/02 044 Pulse Ox 93 07/02 0449 B/P 97/50 07/02 0449 Temp 98.6 07/02 0449 Pulse 86 07/02 0449 Resp 18 07/02 0449 PATIENT WEIGHT: Weight (lb): 188 Weight (oz): Weight (kg): 85.500 Diagnosis, Assessment Plan Diagnosis, Assessment Plan Assessment: nml progress Plan: routine care at 0749 RPT #:[id number] END OF REPORT [facility] 2024-07-01 06:48:00 [facility]) OB Delivery Note REPORT#:[id number] REPORT STATUS: Signed REPORT INITIALIZATION DATE:07/01/24 TIME: 06 PATIENT: JOHAN LOREDO UNIT #: [id number] [facility] : 98 AGE: 24 SEX: F ATTEND: [...] given: Post hemorrhage risk score: Delivery date A: Delivery time infant A: Birthweight (gm) infant A: Weight (lb) infant A: Weight (oz) A: Gender infant A: 1 minute A: 5 minutes infant A: 10 minutes infant A: Cord pH obtained infant A: Vacuum time A: Vacuum # pulls infant A: Vacuum # popoffs A: QBL at delivery: __ Provider comments on imported nursing data: [] Pre-delivery GBS status: GBS status: negative evaluation at delivery: NRP certified personnel Admission EGA: Weeks: 38 Days: 2 EGA at delivery (wks/days): 38 weeks Blood Loss/Details Blood loss at delivery: <1K: no sx hypovol=no hem EBL at delivery (ml's): 500 Baby A Information Baby A information Delivery date: 07/01/24 Delivery time: 740 status: live born Wt of baby (grams): 3440 Wt of baby (lbs/oz): 05/12 Gender: male 1 minute: 8 5 minutes: 9 Presentation: vertex ABG details Baby A Cord blood gases: not collected Nuchal cord Baby A Nuchal cord: no Op/Inv Proc Note - Brief )(Start date: 07/01/2024 )(Start time: 735 )( Procedure(s) performed: repeat low transverse c/s )( Primary Surgeon: Antonette Gonzalez )( Pipe Changer(s): Bg [place] )( Pre-procedure diagnosis: Term , [...] the fascial incision was then grasped with Ewdin clamps, elevated and rectus muscles were dissected [...] to op delivery Mother's condition: mother stable Infant's condition: stable in room at 0757 RPT #:[id number] END OF REPORT [facility] 2024-07-01 06:45:00 [facility] ([facility]) OB Admission / H P REPORT#:[id number] REPORT STATUS: Signed REPORT INITIALIZATION DATE:07/01/24 TIME: 644 PATIENT: JOHAN LOREDO UNIT #: [id number] ROOM/BED: [address] : [birth year] AGE: 24 SEX: F [...] Pulse Ox FiO2 07/01 98.0 92 18 / 84.0 PATIENT WEIGHT: Weight (lb): 188 Weight [...] C section: elective repeat at 0648 RPT #:[id number] END OF REPORT [facility] 2024-02-22 14:59:00 [facility] ([facility]) EMERGENCY PROVIDER REPORT REPORT#:[id number] REPORT STATUS: Signed DATE:02/22/24 TIME: 145 PATIENT: JOHAN LOREDO UNIT #: [id number] ROOM/BED: AGE: 23 SEX: F PCP PHYS: [...] 119/60 02/21 170 B/P Mean 79 02/21 170 O2 Delivery Room air 02/21 170 Temp [...] gross movement NL Physical Exam Genitourinary General Chemical Pumper present Vaginal Bleeding/Discharge Discharge clear. Interpretation Diagnostics [...] % (Auto) (14.5 - 29.7 %) 16.2 Hemphill % (Auto) (3.6 - 10.2 %) 6.5 Eos % (Auto) (0.0 - 3.0 %) 1.4 Baso % (Auto) (0.1 - 0.9 %) 0.3 Neut # (Auto) (K/mm3) 10.2 Lymph # (Auto) (K/mm3) 2.2 Hemphill # (Auto) (K/mm3) 0.9 Eos # (Auto) (K/mm3) 0.19 Baso # (Auto) (K/mm3) 0.0 Other Body Source Membranes Rupture NON-RUPTURED Urines Urine Color (YELLOW) STRAW Urine Appearance (CLEAR) CLEAR Urine pH (5 - 9) 5.0 Ur Specific [place] (1.001 - 1.035) 1.008 Urine Protein (NEG) [...] Report Impression - Status: SIGNED Entered: 02/22/2024 5885 IMPRESSION: Intrauterine with breech presentation with heart [...] Pulse Ox 100 02/21 1704 B/P 119/60 02/22 1704 B/P Mean 79 02/22 1704 O2 Delivery Room air 02/22 1704 Temp 36.6 02/22 1704 Pulse 94 02/22 1704 Resp 18 02/22 1704 All vital signs available at the time of this entry have been reviewed. Condition Stable, Improved Clinical Impression Clinical Impression Primary Impression: Pelvic pain affecting Time of Impression 165 Disposition Decision Discharge )( Discharged to Home Yes )( Time 165 )( Date 02/22/24 Discharge/Care Plan Patient Instructions Comfort Tips During at 1759 RPT #:[id number] END OF REPORT [facility] 2019-09-14 08:07:00 [id number] [facility] [address] [place] [place], [place] [address] PATIENT NAME: JOHAN LOREDO ADMIT DATE: 09/11/19 ACCOUNT NO: [id number] ROOM NO: [facility] AGE: 19 SEX: F ADMITTING PHYSICIAN: Christie [...] WT: DS:IKE/CLAYTON/CORTEZ PATIENT NAME: JOHAN LOREDO Conf#: [id number]/DID#: [id number] Authenticated by Christie Coyne MD On 09/17/2019 07:51:49 AM at 0752 PATIENT NAME: JOHAN LOREDO [facility] 2019-09-14 08:00:00 [facility] ([facility]) OB Postpart Progr Note REPORT#:[id number] REPORT STATUS: Signed DATE:09/14/19 TIME: 0800 PATIENT: JOHAN LOREDO UNIT #: [id number] ROOM/BED: [address] : 98 AGE: 19 SEX: F [...] routine care, discharge today at 0800 RPT #:[id number] END OF REPORT [facility] 2019-09-13 08:53:00 [facility] ([facility]) OB Postpart Progr Note REPORT#:[id number] REPORT STATUS: Signed DATE:09/13/19 TIME: 0853 PATIENT: JOHAN LOREDO UNIT #: [id number] ROOM/BED: [address] : 98 AGE: 19 SEX: F [...] circumcision today, discharge tomorrow at 0853 RPT #:[id number] END OF REPORT [facility] 2019-09-12 08:41:00 [facility] OB Postpart Progr Note REPORT#:[id number] REPORT STATUS: Signed DATE:09/12/19 TIME: 840 PATIENT: JOHAN LOREDO UNIT #: [id number] ROOM/BED: [address] : 98 AGE: 19 SEX: F [...] Plan: routine care, circumcision tomorrow at 0842 [facility] #:[id number] END OF REPORT [facility] 2019-09-11 10:05:00 [phone] [facility] [address] [place], [place] [address] PATIENT NAME: JOHAN LOREDO ADMIT DATE: 09/11/19 ACCOUNT NO: [id number] ROOM NO: .2064 AGE: 19 SEX: F ADMITTING PHYSICIAN: Christie Coyne III, MD ATTENDING PHYSICIAN: Christie Coyne III, MD OPERATION DATE: 09/11/2019 PREOPERATIVE DIAGNOSIS: Term intrauterine , repeat section. POSTOPERATIVE DIAGNOSIS: PROCEDURE: ANESTHESIA: Epidural. SURGEON: Christie Coyne III, MD CHEMICAL CHECKER: Hermelindo Bond SA PROCEDURE IN DETAIL: The [...] angle, tied in the midline with one vmghkc-ac-zxaal in the midline for hemostasis. Uterus was [...] Christie Coyne III, MD WT: OP:IKE/CLAYTON/CORTEZ Conf#: [id number]/DID#: [id number] Authenticated by Christie Coyne MD On 09/12/2019 08:43:47 AM PATIENT NAME: JOHAN LOREDO at 0844 PATIENT NAME: JOHAN LOREOD [facility] 2019-09-10 13:09:00 [id number] [facility] [address] [place], [place] [address] PATIENT NAME: JOHAN LOREDO ADMIT DATE: 09/11/19 ACCOUNT NO: [id number] ROOM NO: [facility] AGE: 19 SEX: F ADMITTING PHYSICIAN: Christie [...] III, MD PATIENT NAME: JOHAN LOREDO WT: HP:F.CHAIM/CLAYTON/CORTEZ Conf#: [id number]/DID#: [id number] Authenticated by Christie Coyne MD On 09/12/2019 08:43:46 AM at 0844 PATIENT NAME: JOHAN LOREDO [facility] 2019-04-18 23:12:00 [facility] ([facility]) EMERGENCY PROVIDER REPORT REPORT#:[id number] REPORT STATUS: Signed DATE:04/18/19 TIME: 2311 PATIENT: JOHAN LOREDO UNIT #: [id number] ROOM/BED: AGE: 18 SEX: F PCP PHYS: [...] 104/56 04/19 0002 B/P Mean 72 04/19 2 Temp 36.8 04/19 2 Pulse 79 04/19 0002 Resp 18 04/19 2 O2 Delivery Room air 04/18 2054 Review [...] % (Auto) (14.3 - 34.3 %) 23.8 Hemphill % (Auto) (5.1 - 10.4 %) 11.2 H Eos % (Auto) (0.1 - 3.0 %) 1.9 Baso % (Auto) (0.1 - 1.0 %) 0.2 Neut # (Auto) (K/mm3) 3.2 Lymph # (Auto) (K/mm3) 1.2 Hemphill # (Auto) (K/mm3) 0.6 Eos # (Auto) (K/mm3) 0.10 Baso # (Auto) (K/mm3) 0.0 Immature Plt Fraction (0.0 - 10.8 %) 0.0 Miscellaneous Maternal Serum HCG 93119 Urines Urine Color (YELLOW) YELLOW Urine Appearance (CLEAR) CLEAR Urine pH (5 - 9) 6.0 Ur Specific [place] (1.001 - 1.035) 1.006 Urine Protein (NEG) [...] 04/18 2215 CKD 04/18 PO 06/17 2214 2234 Dextrose/Sodium 1,000 ML X1ED STA 04/18 2214 [...] Mean 72 04/19 0002 Temp 36.8 04/19 0002 Pulse 79 04/19 0002 Resp 18 04/19 [...] a call to 911. at 1324 RPT #:[id number] END OF REPORT [facility]
[2024-10-06] MEDS ORDERED: ONDANSETRON 4 MG/2 ML VIAL ONE (21:50)
[2024-10-06] MEDS ORDERED: NA CHLORIDE 0.9% 1,000 ML ONE (21:51)
[2024-10-06] MEDS ORDERED: KETOROLAC 30 MG/ML INJ ONE (21:51)
[2024-10-06] MEDS ORDERED: KETAMINE HCL IN 0.9 % NACL 50 MG/5 ML SYRINGE IV ONE (22:00)
[2024-10-06 22:03] LABS: Absolute Eosinophils 0.1 K/uL (0-0.5); Absolute Lymphocytes (CBC) 1.2 K/uL (0.7-4.9); Absolute Neutrophil 8.6 K/uL (1.8-8.0); Basophils % 0.3 % (0-1.3); Eosinophils % 0.6 % (0-4.4); Hematocrit 38.7 % (36.0-45.0); Hemoglobin 12.6 g/dL (12.0-15.0); Lymphocytes % 11.4 % (15.3-44.8); MCH 27.4 pg (27.0-35.0); MCHC 32.5 g/dL (32.0-36.0); MCV 84.4 fL (80-100); MPV 7.4 fL (7.6-11.3); Monocytes % 8.8 % (3.3-12.3); Neutrophils % 78.9 % (41.7-73.7); Platelets 321 thou/uL (152-406); RBC Red Blood Cell Count 4.58 M/uL (3.86-4.86); Red Cell Distribution Width 14.6 % (12.1-15.2)
[2024-10-06 22:20] LABS: Albumin 3.4 g/dL (3.4-5.0); Albumin/Globulin Ratio 0.8 (1.1-1.8); Anion Gap 10.7 mEq/L (5.0-15.0); Bilirubin Total 0.5 mg/dL (0.2-1.0); Globulin 4.2 g/dL (2.3-3.5); Potassium 3.7 mEq/L (3.5-5.1); Protein, Total 7.6 g/dL (6.4-8.2)
[2024-10-06] MEDS ORDERED: MORPHINE 4 MG/ML SYR ONE (22:29)
[2024-10-06] MEDS ORDERED: HYDROMORPHONE HCL 0.5 MG/0.5 ML INJ ONE ×2 (23:26→23:39)
--- NOTE | 2024-10-06 23:54 | RAD REPORT ---
EXAM DESCRIPTION: US PELVIS TRANSVAGINAL CLINICAL HISTORY: ABD PAIN COMPARISON: None FINDINGS: Transvaginal images of the pelvis were performed. The uterus measures 8.4 x 3.9 cm. No discrete echog enic foci all vascular structure noted within the uterus. 2.2 x 2.3 cm area of decreased echotexture within the anterior aspect of the uterus could represent a fibroid. Air filled bowel loop s noted within the abdomen. There is a small amount of free fluid in the pelvis.: The ovaries were not visualized. IMPRESSION: 1. 2.3 cm area of decreased echotexture within the anterior aspect of the uterus could represent a fibroid. 2. Dilated bowel loops within the abdomen. Prior CT is not available for comparison however the rep ort is available which described a colitis at the level of the descending colon extending into the rectum. Electronically signed by: Cedric Moulton MD 10/06/2024 11:49 PM [facility] Due to temporary technical issues with the PACS/Audiosocketibe reporting system, reports are being signed by the in-house radiologist without review as a courtesy to ensure prompt reporting the interpreting radiologist is fully responsible for the content of the report. Transcribed Date/Time: 10/06/2024 11:53 PM
--- NOTE | 2024-10-07 00:23 | ER ---
Nurse's Notes [facility] Name: Lisa Craig Age: 24 yrs Sex: Female : 2000 Arrival Date: 10/06/2024 Time: 21:30 Bed 16 Private MD: Diagnosis: Left sided colitis;Abdominal pain, unspecified-intractable Presentation: 10/06 21:44 Chief complaint: Patient states: I was seen here this morning and told I have bm8 cololitis, the pain and nausea are back. Coronavirus screen: Vaccine status: Patient reports receiving the 2nd dose of the covid vaccine. At this time, the client does not indicate any symptoms associated with coronavirus-19. Ebola Screen: Patient negative for fever greater than or equal to 101.5 degrees Fahrenheit, and additional compatible Ebola Virus Disease symptoms Patient denies exposure to infectious person. Patient denies travel to an Ebola-affected area in the 21 days before illness onset. No symptoms or risks identified at this time. Initial Sepsis Screen: Does the patient meet any 2 criteria? No. Patient's initial sepsis screen is negative. Does the patient have a suspected source of infection? No. Patient's initial sepsis screen is negative. Risk Assessment: Do you want to hurt yourself or someone else? Patient reports no desire to harm self or others. Onset of symptoms was October 06, 2024 at 03:00. 21:44 Method Of Arrival: Ambulatory bm8 21:44 Acuity: LIZ 3 bm8 Triage Assessment: 21:46 General: Appears distressed, uncomfortable, Behavior is calm, cooperative, appropriate bm8 for age. Pain: Complains of pain in suprapubic area and left lower quadrant Pain currently is 10 out of 10 on a pain scale. EENT: No deficits noted. No signs and/or symptoms were reported regarding the EENT system. Neuro: No deficits noted. Level of Consciousness is awake, alert, obeys commands, Oriented to person, place, time, situation, Appropriate for age. Cardiovascular: Denies chest pain, Capillary refill < 3 seconds in bilateral fingers Patient's skin is warm and dry. Respiratory: Airway is patent Respiratory effort is even, unlabored, Respiratory pattern is regular, symmetrical. GI: Reports lower abdominal pain, cramping, nausea, Pain is 10 out of 10 on a pain scale. : No signs and/or symptoms were reported regarding the genitourinary system. Derm: No signs and/or symptoms reported regarding the dermatologic system. Musculoskeletal: No signs and/or symptoms reported regarding the musculoskeletal system. 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 - Infectious Disease History:: Denies. - Social history:: Smoking status: Patient denies any tobacco usage or history of. Patient/guardian denies using alcohol, street drugs. Screenin:02 [facility] ED Fall Risk Assessment (Adult) History of falling in the last 3 months, bm8 including since admission No falls in past 3 months (0 pts) Confusion or Disorientation No (0 pts) Intoxicated or Sedated No (0 pts) Impaired Gait No (0 pts) Mobility Assist Device Used No (0 pt) Altered Elimination No (0 pt) Score/Fall Risk Level 0 - 2 = Low Risk Oriented to surroundings, Maintained a safe environment, Educated pt \T\ family on fall prevention, incl call for assistance when getting out of bed, Assessed \T\ reinforced patient's understanding of fall precautions, Hourly rounding (assess needs \T\ fall precautionary measures) done, Used ambulatory aids as needed (educated on \T\ assisted with), Used gait belt as appropriate. Abuse screen: Denies threats or abuse. Nutritional screening: No deficits noted. Tuberculosis screening: No symptoms or risk factors identified. Assessment: 23:29 Reassessment: Patient appears in no apparent distress at this time. Patient and/or jb4 family updated on plan of care and expected duration. Pain level reassessed. Patient is alert, oriented x 3, equal unlabored respirations, skin warm/dry/pink. 1204 00:30 Reassessment: Patient appears in no apparent distress at this time. Patient and/or jb4 family updated on plan of care and expected duration. Pain level reassessed. Patient is alert, oriented x 3, equal unlabored respirations, skin warm/dry/pink. 01:30 Reassessment: Patient appears in no apparent distress at this time. Patient and/or jb4 family updated on plan of care and expected duration. Pain level reassessed. Patient is alert, oriented x 3, equal unlabored respirations, skin warm/dry/pink. Vital Signs: 10/06 21:44 BP 125 / 65; Pulse 106; Resp 18; Temp 98.3; Pulse Ox 100% ; Weight 77.11 kg; Height 5 bm8 ft. 5 in. ; Pain 10/; 23:29 BP 124 / 67; Pulse 102; Resp 16; Pulse Ox 98% on R/A; jb4 10/07 01:30 BP 112 / 72; Pulse 81; Resp 16; Pulse Ox 100% on R/A; jb4 10/06 21:44 Body Mass Index 28.29 (77.11 kg, 165.1 cm) bm8 10/06 21:44 Pain Scale: Adult bm8 ED Course: 10/06 21:32 Patient arrived in ED. jj6 21:32 [facility]-C [facility]. kb 21:32 Jerry Patel MD is Attending Physician. kb 21:46 Triage completed. bm8 21:46 Arm band placed on right wrist. bm8 21:48 No provider procedures requiring assistance completed. Inserted saline lock: 20 gauge bm8 in left antecubital area, using aseptic technique. Blood collected. Flushed with 10 mL NS. Patient maintains SpO2 saturation greater than 95% on room air. 22:02 Patient has correct armband on for positive identification. Placed in gown. Bed in low bm8 position. Call light in reach. Side rails up X2. Client placed on continuous cardiac and pulse oximetry monitoring. NIBP monitoring applied. Pulse ox on. NIBP on. Noise minimized. Visitors limited. Pillow given. Verbal reassurance given. Head of bed. 23:29 Emanuel Bangura, RN is Primary Nurse. jb4 23:34 Transvaginal Study (Probe) In Process Unspecified. EDMS 10/07 00:22 Jarad Bose MD is Hospitalizing Provider. kb 00:51 CT Abd/Pelvis - IV Contrast Only In Process Unspecified. EDMS 02:15 Provided Education on: need for admission. bm8 02:15 Patient admitted, IV remains in place. 8 12:29 1229 CM met with patient at the bedside in the ED exam room. Patient identified by name ane and . Demographic sheet confirmed. PCP none. No MPOA in place. Patient states she lives with her in a single story home and reports that prior to admission,she performs ADLs independently. No HH, home oxygen or other medical services at this time. Her preferred plan is to return home upon discharge and states either her Mom, Helio or her Hai will transport her home. CM team will continue to follow and coordinate care. Administered Medications: 10/06 22:01 Drug: TORadol - Ketorolac IVP 15 mg IVP once Route: IVP; Site: left antecubital; [facility] 10/07 04:32 Follow up: Response: No adverse reaction [facility] 10/06 22:01 Drug: Ondansetron IVP 4 mg IVP once; over 2 minutes Route: IVP; Site: left antecubital; [facility] 10/07 04:32 Follow up: Response: No adverse reaction [facility] 10/06 22:01 Drug: NS 0.9% IV 1000 ml IV at 1 bolus Per protocol; to be given as a bolus over 60 bm8 minutes Route: IV; Rate: 1 bolus; Site: left antecubital; 23:00 Follow up: Response: No adverse reaction; IV Status: Completed infusion; IV Intake: bm8 1000ml 22:01 Drug: Ketamine IVP 10 mg IVP once Route: IVP; Site: left antecubital; bm8 22:10 Follow up: Response: No adverse reaction; Marked relief of symptoms jb4 22:35 Drug: morphine IVP or IV 4 mg IVP once over 4 mins Route: IVP; Infused Over: 4 mins; jb4 Site: left antecubital; 23:15 Follow up: Response: No adverse reaction; No change in condition; Pain is unchanged, jb4 physician notified 23:28 Drug: HYDROmorphone IVP 0.5 mg IVP once Route: IVP; Site: left antecubital; jb4 23:50 Follow up: Response: No adverse reaction; Marked relief of symptoms; Pain is decreased jb4 23:43 Drug: HYDROmorphone IVP 0.5 mg IVP once Route: IVP; Site: left antecubital; jb4 23:50 Follow up: Response: No adverse reaction; Marked relief of symptoms jb4 10/07 00:32 Drug: Dicyclomine PO 20 mg PO once Route: PO; jb4 01:00 Follow up: Response: No adverse reaction; Marked relief of symptoms jb4 Medication: 02:15 VIS not applicable for this client. bm8 Intake: 10/06 23:00 IV: 1000ml; Total: 1000ml. bm8 Outcome: 10/07 00:23 Decision to Hospitalize by Provider. kb 02:15 Admitted to ER Hold. Please see [facility] for further documentation. bm8 02:15 Condition: stable 02:15 Instructed on the need for admit, Demonstrated understanding of instructions, follow-up care, 13:15 Patient left the ED. ph Signatures: Dispatcher [employer] EDMS Iris Lopez, CHOKER SETTER-C CHOKER SETTER-Jyoti Sagastume RN RN Emanuel Bangura, RN RN jb4 Yumiko Moore Brad, RN RN bm8 Fany Bazzi, RN RN ane Corrections: (The following items were deleted from the chart) 04:31 04:30 Patient admitted, IV remains in place. bm8 bm8
--- NOTE | 2024-10-07 00:23 | EDPHYS ---
Physician Documentation [facility] Name: Lisa Craig Age: 24 yrs Sex: Female : 2000 Arrival Date: 10/06/2024 Time: 21:30 Bed 16 Private MD: ED Physician Jerry Patel HPI: 10/07 00:33 This 24 yrs old Female presents to ER via Ambulatory with complaints of SEVERE ABD kb PAIN/CRAMPING. 00:33 Pt is a 24 year old female who presents for diffuse abd pain, worse on the left side kb that started at 0300 this morning. States she was seen this morning and sent home with antibiotics. 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 - Infectious Disease History:: Denies. - Social history:: Smoking status: Patient denies any tobacco usage or history of. Patient/guardian denies using alcohol, street drugs. ROS: 10/07 00:31 Constitutional: As per HPI kb Exam: 00:31 Constitutional: This is a well developed, well nourished patient who is awake, alert, kb and in no acute distress. Head/Face: Normocephalic, atraumatic. ENT: Moist Mucous membranes Cardiovascular: Regular rate Respiratory: Respirations even and unlabored. No increased work of breathing. Talking in full sentences Skin: Warm, dry with normal turgor. Normal color. MS/ Extremity: Pulses equal, no cyanosis. Neurovascular intact. Full, normal range of motion. Neuro: Awake and alert, GCS 15, oriented to person, place, time, and situation. 00:31 Abdomen/GI: Inspection: abdomen appears normal, Bowel sounds: normal, Palpation: soft, in all quadrants, mild abdominal tenderness, in the right upper quadrant and right lower quadrant, moderate abdominal tenderness, in the left upper quadrant and left lower quadrant, Vital Signs: 10/06 21:44 BP 125 / 65; Pulse 106; Resp 18; Temp 98.3; Pulse Ox 100% ; Weight 77.11 kg; Height 5 bm8 ft. 5 in. ; Pain 10/10; 23:29 BP 124 / 67; Pulse 102; Resp 16; Pulse Ox 98% on R/A; jb4 10/07 01:30 BP 112 / 72; Pulse 81; Resp 16; Pulse Ox 100% on R/A; jb4 10/06 21:44 Body Mass Index 28.29 (77.11 kg, 165.1 cm) bm8 10/06 21:44 Pain Scale: Adult bm8 MDM: 10/06 21:33 Medical Screening Exam initiated kb 10/07 00:29 ED course: Pain still unresolved after multiple pain medications. Will admit for pain kb control. . 00:30 Differential diagnosis: colitis, diverticulitis, bowel obstruction, unspecified abd kb pain, ovarian cyst. Data reviewed: vital signs, nurses notes. Consideration of Admission/Observation Patient was admitted/placed on observation. Escalation of care including admission/observation considered. Management of patient was discussed with the following: Hospitalist: Dr Bose accepts pt for admission. After evaluation, Dr Bose does request repeat CT abd/pelvis be ordered. He will follow up on results. . Historians other than the Patient: Family Member: family member. Counseling: I had a detailed discussion with the patient and/or guardian regarding the historical points, exam findings, and any diagnostic results supporting the discharge/admit diagnosis, lab results, radiology results, the need for further work-up and treatment in the hospital. 10/06 21:49 Order name: CBC with Diff; Complete Time: 22:25 kb 10/06 21:49 Order name: CMP; Complete Time: 22:25 kb 10/06 21:49 Order name: Lipase; Complete Time: 22:25 kb 10/07 01:21 Order name: Urinalysis w/ reflexes EDMS 10/07 01:21 Order name: CBC with Automated Diff EDMS 10/07 01:21 Order name: CBC with Automated Diff EDMS 10/07 01:21 Order name: Comprehensive Metabolic Panel EDMS 10/07 01:21 Order name: Comprehensive Metabolic Panel EDMS 10/06 22:26 Order name: US Transvaginal Study (Probe); Complete Time: 00:25 kb 10/07 00:26 Order name: CT Abd/Pelvis - IV Contrast Only; Complete Time: 14:04 kb 10/06 21:49 Order name: IV Saline Lock; Complete Time: 22:01 kb 10/06 21:49 Order name: Labs collected and sent; Complete Time: 22:02 kb Administered Medications: 10/06 22:01 Drug: TORadol - Ketorolac IVP 15 mg IVP once Route: IVP; Site: left antecubital; 8 10/07 04:32 Follow up: Response: No adverse reaction [facility] 10/06 22:01 Drug: Ondansetron IVP 4 mg IVP once; over 2 minutes Route: IVP; Site: left antecubital; [facility] 10/07 04:32 Follow up: Response: No adverse reaction [facility] 10/06 22:01 Drug: NS 0.9% IV 1000 ml IV at 1 bolus Per protocol; to be given as a bolus over 60 bm8 minutes Route: IV; Rate: 1 bolus; Site: left antecubital; 23:00 Follow up: Response: No adverse reaction; IV Status: Completed infusion; IV Intake: bm8 1000ml 22:01 Drug: Ketamine IVP 10 mg IVP once Route: IVP; Site: left antecubital; 8 22:10 Follow up: Response: No adverse reaction; Marked relief of symptoms [facility] 22:35 Drug: morphine IVP or IV 4 mg IVP once over 4 mins Route: IVP; Infused Over: 4 mins; [facility] Site: left antecubital; 23:15 Follow up: Response: No adverse reaction; No change in condition; Pain is unchanged, 4 physician notified 23:28 Drug: HYDROmorphone IVP 0.5 mg IVP once Route: IVP; Site: left antecubital; 4 23:50 Follow up: Response: No adverse reaction; Marked relief of symptoms; Pain is decreased [facility] 23:43 Drug: HYDROmorphone IVP 0.5 mg IVP once Route: IVP; Site: left antecubital; [facility] 23:50 Follow up: Response: No adverse reaction; Marked relief of symptoms [facility] 10/07 00:32 Drug: Dicyclomine PO 20 mg PO once Route: PO; jb4 01:00 Follow up: Response: No adverse reaction; Marked relief of symptoms jb4 Disposition: 04:31 Co-signature as Attending Physician, Jerry Patel MD I agree with the assessment sp4 and plan of care. I reviewed the patient's care provided by Advanced Practice Provider \T\ agree w/ the diagnosis \T\ care plan. I personally saw the pt \T\ performed a substantive portion of the visit, incldng all aspects of the (History/Exam/Medical Decision Making). Disposition Summary: 10/07/24 00:23 Hospitalization Ordered Notes: Hospitalization Status: Observation kb Provider: Jarad Bose Condition: Stable kb Problem: new kb Symptoms: are unchanged kb Bed/Room Type: Standard kb Location: Telemetry/MedSurg (observation)(10/07/24 11:25) bd Room Assignment: 222(10/07/24 11:25) bd Diagnosis - Left sided colitis kb - Abdominal pain, unspecified - intractable kb Forms: - Medication Reconciliation Form kb - SBAR form kb - Leadership Thank You Letter kb Signatures: Dispatcher [employer] EDMS Iris Lopez, INSURANCE SALES EXECUTIVE-C INSURANCE SALES EXECUTIVE-Ckb Irena Perry James, RN RN jb4 Zamzam Alfaro RN RN vc1 Jerry Patel MD MD sp4 Chris Justice RN RN bm8 Corrections: (The following items were deleted from the chart) 00:52 00:23 Telemetry/MedSurg (observation) kb vc1 00:52 00:23 kb vc1 : 00:52 [facility] ER HOLD vc1 bd 11: 00:52 ERHOLD- vc1 bd
[2024-10-07] MEDS ORDERED: DICYCLOMINE HCL 10 MG CAP ONE (00:27)
--- NOTE | 2024-10-07 01:17 | P.HP ---
Certification for Inpatient Patient admitted to: Inpatient With expected LOS: >2 Midnights Practitioner: I am a practitioner with admitting privileges, knowledge of patient current condition, hospital course, and medical plan of care. Services: Services provided to patient in accordance with Admission requirements found in Title 42 Section 412.3 of the Code of Federal Regulations Patient History Date of Service: 10/07/24 Reason for admission: Abdominal pain History of Present Illness: 24-year-old female who was brought to ER with abdominal pain, associated with nausea and vomiting and low back pain. 24-year-old female with no past medical history, by 3 months now presents with anterior abdominal pain suprapubic radiating bilaterally around to the lower back. She denies any symptoms, vaginal bleeding or discharge with last menstrual cycle approximately 3 weeks ago, diarrhea, known sick contacts or fever. She does endorse nausea and vomiting . No blood in her emesis. Patient is constipated. Complains of intractable lower abdominal pain especially on the left lower quadrant started a day ago and has been progressively getting worse associated with constipation. Denies any melena. Patient was assessed in the ER and is admitted for further management as the patient found to have colitis Allergies No Known Allergies Allergy (Unverified 08/04/17 00:02) Home medications list reviewed: Yes - Past Medical/Surgical History Past Medical History: Reviewed- Non-Contributory Past Surgical History: Reviewed- Non-Contributory - Social History Smoking Status: Never smoker Review of Systems 10-point ROS is otherwise unremarkable Physical Examination - Vital Signs Temperature: 98.3 F Blood Pressure: 99/58 Pulse: 92 Respirations: 17 Pulse Ox (%): 94 - Physical Exam General: Alert, Oriented x3, Moderate distress HEENT: Atraumatic, Normocephalic Neck: Supple Respiratory: Clear to auscultation bilaterally, Normal air movement Cardiovascular: Normal pulses, Regular rate/rhythm, Normal S1 S2 Capillary refill: <2 Seconds Gastrointestinal: W/out hepatosplenomegaly, Tenderness Musculoskeletal: No clubbing, No swelling Integumentary: No rashes Neurological: Normal speech, Normal strength at 5/5 x4 extr Lymphatics: No axilla or inguinal lymphadenopathy - Studies Laboratory Data (last 24 hrs) 10/06/24 10/06/24 21:55 21:55 WBC 10.90 Hgb 12.6 Hct 38.7 Plt Count 321 Sodium 138 Potassium 3.7 D BUN 7 Creatinine 0.76 Glucose 115 H Total Bilirubin 0.5 AST 19 ALT 36 Alkaline Phosphatase 74 Lipase 20 Assessment and Plan - Problems (Diagnosis) (1) Colitis Current Visit: Yes Status: Acute - Plan Colitis Intractable abdominal pain Pain control Started on IV antibiotics CT findings noted Colitis beginning the descending colon and extending into the rectum Will keep on clear liquid as tolerated GI consult If not better in a.m. Patient was on Mounjaro before possible side effect ? 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
[2024-10-07] MEDS ORDERED: LACTULOSE 20 GM/30 ML UCUP PO PRN (01:19)
--- NOTE | 2024-10-07 02:14 | RAD REPORT ---
EXAM DESCRIPTION: Abdomen Pelvis W Contrast CLINICAL HISTORY: ABD PAIN COMPARISON: 10/06/2024 TECHNIQUE: CT of the abdomen and pelvis performed following the administration of IV contrast. No ora l contrast. This exam was performed according to our departmental dose-optimization program, which includes automated exposure control, adjustment of the mA and/or kV according to patient size and/or use of iterative reconstruction technique. FINDINGS: Lung Bases: No basilar consolidation. Abdomen: Liver: The liver has normal contour and density. No suspicious mass. Gallbladder: No calcified gallstones. No significant biliary dilatation. Spleen, Pancreas, and Adrenal Glands: The spleen, pancreas, and adrenal glands are unremarkable. Kidneys: No suspicious mass. No urinary tract calculi. No hydronephrosis. Vasculature: The aorta and IVC have normal caliber and position. The portal vein is patent. The pro ximal visceral and renal arteries are patent. Stomach: The stomach and duodenum have normal course. Other: No free intraperitoneal air. No significant lymphadenopathy. Pelvis: Bladder: Decompressed. Bowel: Postsurgical changes at the distal colon again demonstrated. There is circumferential wall t hickening and adjacent fat stranding involving the descending colon. There is some progressive distention of the colon proximally which is diffusely fluid-filled, suggestive of diarrhea. No signif icant small bowel dilatation is identified. Small amount of free fluid. Appendix: Not visualized. Pelvis: Stable small probable fibroid along the right uterine fundus. Bones: No destructive bone lesions identified. IMPRESSION: 1. Findings consistent with colitis involving the descending colon. There is increased distention o f the colon proximally since prior exam which is diffusely fluid-filled, suggestive of diarrhea. No significant small bowel dilatation. 2. Small amount of free fluid. Electronically signed by: Gabby Wright MD 10/07/2024 01:43 AM [facility] Due to temporary technical issues with the PACS/Xek[employer] reporting system, reports are being christopher d by the in-house radiologist without review as a courtesy to ensure prompt reporting the interpreting radiologist is fully responsible for the content of the report. Transcribed Date/Time: 10/07/2024 2:14 AM
[2024-10-07] MEDS: D5 0.45 NS 1,000 ML IV SCH (02:38)
[2024-10-07] MEDS ORDERED: D5 0.45 NS 1,000 ML IV ONE (02:39)
[2024-10-07 02:42] VITALS: BMI 28.3
[2024-10-07] MEDS: FLU (Fluarix Triv) TS24-25(6MOS UP)/PF 45 MCG/0.5 ML Syringe IM ONE (07:45)
[2024-10-07] MEDS ORDERED: CEFTRIAXONE 1000 MG/VIAL ONE (08:21)
[2024-10-07] MEDS ORDERED: ONDANSETRON 4 MG/2 ML VIAL ONE (08:21)
[2024-10-07] MEDS ORDERED: PANTOPRAZOLE 40 MG INJ ONE (08:21)
[2024-10-07] MEDS ORDERED: NA CHLORIDE 0.9% 50 ML ONE (08:21)
[2024-10-07] MEDS ORDERED: METRONIDAZOLE 500mg IVPB 500 MG/100 ML BAG IV ONE (08:22)
[2024-10-07] MEDS ORDERED: HYDROMORPHONE HCL 1 MG/ML INJ ONE (08:52)
[2024-10-07] MEDS: ONDANSETRON 4 MG/2 ML VIAL IV PRN (09:00)
[2024-10-07] MEDS: CEFTRIAXONE 1,000 MG in NA CHLORIDE 0.9% 50 ML IVPB SCH (09:00)
[2024-10-07] MEDS: PANTOPRAZOLE 40 MG INJ IVP SCH (09:00)
[2024-10-07] MEDS: METRONIDAZOLE 500mg IVPB 500 MG/100 ML BAG IV SCH (09:00)
[2024-10-07] MEDS: HYDROMORPHONE HCL 1 MG/ML INJ IV PRN (09:00)
[2024-10-07] MEDS: SODIUM CHLORIDE 0.9% 10ML INJ IV PRN (09:00)
[2024-10-07] MEDS: ENOXAPARIN 40 MG/0.4 ML SQ SCH (09:00)
[2024-10-07] MEDS: ACETAMINOPHEN 325 MG TABLET PO PRN (15:22)
[2024-10-07 17:30] VITALS: O2SAT 100
[2024-10-07] MEDS: HYDROCODONE/APAP 5/325 MG TAB PO PRN (19:22)
[2024-10-08 05:02] VITALS: BP 111/53; TEMP 97.5
[2024-10-08 07:50] LABS: Absolute Basophils 0.1 K/uL (0-0.5); Absolute Eosinophils 0.4 K/uL (0-0.5); Absolute Lymphocytes (CBC) 1.5 K/uL (0.7-4.9); Absolute Monocytes 0.4 K/uL (0.1-1.3); Absolute Neutrophil 2.8 K/uL (1.8-8.0); Basophils % 1.7 % (0-1.3); Eosinophils % 7.2 % (0-4.4); Hematocrit 33.5 % (36.0-45.0); Hemoglobin 10.9 g/dL (12.0-15.0); Lymphocytes % 29.5 % (15.3-44.8); MCH 27.5 pg (27.0-35.0); MCHC 32.6 g/dL (32.0-36.0); MCV 84.5 fL (80-100); MPV 7.2 fL (7.6-11.3); Monocytes % 7.4 % (3.3-12.3); Neutrophils % 54.2 % (41.7-73.7); Nucleated Red Blood Cells % 0.2 % (0-0); Platelets 288 thou/uL (152-406); RBC Red Blood Cell Count 3.96 M/uL (3.86-4.86); Red Cell Distribution Width 14.6 % (12.1-15.2)
--- NOTE | 2024-10-08 07:58 | P.DS ---
Admission Date: 10/07/24 Discharge Date: 10/08/24 Disposition: ROUTINE DISCHARGE Discharge Condition: GOOD Reason for Admission: Abdominal pain Brief History of Present Illness: 24-year-old female with no past medical history, by 3 months now presents with anterior abdominal pain suprapubic radiating bilaterally around to the lower back associated with nausea and vomiting . She denies any symptoms, vaginal bleeding or discharge with last menstrual cycle approximately 3 weeks ago, diarrhea, known sick contacts or fever. She does endorse nausea and vomiting . No blood in her emesis. Patient is constipated. Complains of intractable lower abdominal pain especially on the left lower quadrant started a day ago and has been progressively getting worse associated with constipation. Denies any melena. Patient was assessed in the ER and is admitted for further management as the patient found to have colitis Hospital Course: Problem List: Colitis Physician discharge instructions: Patient presented to the ED with abdominal pain, nausea secondary to colitis. She was seen here in the ER day before admission, CT abdomen at the time with findings suggestive of colitis and she was given prescriptions for ciprofloxacin/flagyl. CT abdomen this hospitalization noted colitis beginning at the descending colon and extending to the rectum, similar to CT findings from ER visit on 10/06. She was given IV fluids in addition to empiric antibiotics and had improvement of her symptoms. Patient will need to complete 7 more days of ciprofloxacin and flagyl on discharge. Patient was monitored overnight, feeling better, abdominal pain improving, nausea resolved, and was deemed stable for discharge. Recommend continuing liquid diet for next 2-3 days, can slowly advance to soft foods as tolerable and eventually regular diet. Avoid fatty/greasy foods. Advised to follow up with GI in the near future for further management. Medications: Ciprofloxacin and Flagyl for 7 days Continue other home medications as previously prescribed. Follow up: PCP 3-5 days GI 2-4 weeks Please call to schedule / confirm appointments Ultrasound (Transvaginal) 10/06/24 Uterus measures 8.4 x 3.9 cm. No discrete echogenic foci all vascular structure noted within the uterus. 2.2 x 2.3 cm area of decreased echotexture within the anterior aspect of the uterus could represent a fibroid. Air filled bowel loops noted within the abdomen. There is a small amount of free fluid in the pelvis.: The ovaries were not visualized. IMPRESSION: 1. 2.3 cm area of decreased echotexture within the anterior aspect of the uterus could represent a fibroid. 2. Dilated bowel loops within the abdomen. Prior CT is not available for comparison however the report is available which described a colitis at the level of the descending colon extending into the rectum. CT Abdomen/Pelvis 10/07/24 Postsurgical changes at the distal colon again demonstrated. There is circumferential wall thickening and adjacent fat stranding involving the descending colon. There is some progressive distention of the colon proximally which is diffusely fluid-filled, suggestive of diarrhea. No significant small bowel dilatation is identified. Small amount of free fluid. Stable small probable fibroid along the right uterine fundus IMPRESSION: 1. Findings consistent with colitis involving the descending colon. There is increased distention of the colon proximally since prior exam which is diffusely fluid-filled, suggestive of diarrhea. No significant small bowel dilatation. 2. Small amount of free fluid. Physical Exam: GEN: Alert, oriented, NAD HEENT: Normal conjunctiva, sclera anicteric, CV: Regular rate and rhythm, no edema Pulm: Nonlabored respirations on room air, clear bilaterally ABD: soft, nontender, nondistended Neuro: Normal speech, normal affect Vital Signs/Physical Exam: Temp Pulse Resp BP Pulse Ox 97.5 F 85 17 111/53 L 96 10/08/24 04:00 10/08/24 04:00 10/08/24 04:00 10/08/24 04:00 10/08/24 04:00 Laboratory Data at Discharge: WBC 5.10 thou/uL (4.3-10.9) 10/08/24 07:33 Hgb 10.9 g/dL (12.0-15.0) L 10/08/24 07:33 Hct 33.5 % (36.0-45.0) L 10/08/24 07:33 Plt Count 288 thou/uL (152-406) 10/08/24 07:33 Sodium 138 mEq/L (136-145) 10/06/24 21:55 Potassium 3.7 mEq/L (3.5-5.1) D 10/06/24 21:55 BUN 7 mg/dL (7-18) 10/06/24 21:55 Creatinine 0.76 mg/dL (0.55-1.02) 10/06/24 21:55 Glucose 115 mg/dL (74-106) H 10/06/24 21:55 Total Bilirubin 0.5 mg/dL (0.2-1.0) 10/06/24 21:55 AST 19 U/L (15-37) 10/06/24 21:55 ALT 36 U/L (13-56) 10/06/24 21:55 Alkaline Phosphatase 74 U/L (45-117) 10/06/24 21:55 Lipase 20 U/L (13-75) 10/06/24 21:55 Home Medications: Norethindrone-E.estradiol-Iron [Blisovi Fe 1-20 Tablet] 1 each PO DAILY 10/07/24 Ciprofloxacin HCl 500 mg PO Q12H 7 Days #14 tab 10/08/24 metroNIDAZOLE [Metronidazole] 500 mg PO Q8H 7 Days #21 tab 10/08/24 New Medications: Ciprofloxacin HCl 500 mg PO Q12H 7 Days #14 tab metroNIDAZOLE [Metronidazole] 500 mg PO Q8H 7 Days #21 tab Physician Discharge Instructions: Physician discharge instructions: Patient presented to the ED with abdominal pain, nausea secondary to colitis. She was seen here in the ER day before admission, CT abdomen at the time with findings suggestive of colitis and she was given prescriptions for ciprofloxacin/flagyl. CT abdomen this hospitalization noted colitis beginning at the descending colon and extending to the rectum, similar to CT findings from ER visit on 10/06. She was given IV fluids in addition to empiric antibiotics and had improvement of her symptoms. Patient will need to complete 7 more days of ciprofloxacin and flagyl on discharge. Patient was monitored overnight, feeling better, abdominal pain improving, nausea resolved, and was deemed stable for discharge. Recommend continuing liquid diet for next 2-3 days, can slowly advance to soft foods as tolerable and eventually regular diet. Avoid fatty/greasy foods. Avoid laxatives and fiber at this time. Advised to follow up with GI in the near future for further management. Incidental fibroid appearing area noted on ultrasound. Discussed following up with [facility]. Medications: Ciprofloxacin and Flagyl for 7 more days Continue other home medications as previously prescribed. Follow up: PCP 3-5 days GI 2-4 weeks Please call to schedule / confirm appointments Ultrasound (Transvaginal) 10/06/24 Uterus measures 8.4 x 3.9 cm. No discrete echogenic foci all vascular structure noted within the uterus. 2.2 x 2.3 cm area of decreased echotexture within the anterior aspect of the uterus could represent a fibroid. Air filled bowel loops noted within the abdomen. There is a small amount of free fluid in the pelvis.: The ovaries were not visualized. IMPRESSION: 1. 2.3 cm area of decreased echotexture within the anterior aspect of the uterus could represent a fibroid. 2. Dilated bowel loops within the abdomen. Prior CT is not available for comparison however the report is available which described a colitis at the level of the descending colon extending into the rectum. CT Abdomen/Pelvis 10/07/24 Postsurgical changes at the distal colon again demonstrated. There is circumferential wall thickening and adjacent fat stranding involving the descending colon. There is some progressive distention of the colon proximally which is diffusely fluid-filled, suggestive of diarrhea. No significant small bowel dilatation is identified. Small amount of free fluid. Stable small probable fibroid along the right uterine fundus IMPRESSION: 1. Findings consistent with colitis involving the descending colon. There is increased distention of the colon proximally since prior exam which is diffusely fluid-filled, suggestive of diarrhea. No significant small bowel dilatation. 2. Small amount of free fluid. Followup: NONE,NONE [Primary Care Provider] - Time spent managing pt's care (in minutes): 45
[2024-10-08 08:18] LABS: Albumin 2.8 g/dL (3.4-5.0); Albumin/Globulin Ratio 0.8 (1.1-1.8); Anion Gap 5.3 mEq/L (5.0-15.0); Bilirubin Total 0.3 mg/dL (0.2-1.0); Globulin 3.4 g/dL (2.3-3.5); Potassium 3.3 mEq/L (3.5-5.1); Protein, Total 6.2 g/dL (6.4-8.2)
[2024-10-08] MEDS: POTASSIUM CL SA 10 MEQ TAB PO ONE (09:00)
== END 2024-10-08 09:22 | disposition home or self-care (01) | DRG 387 ==
LOC: ER 21:30 → ERHOLD 10-07 01:17 → 2ND 10-07 12:20
PROVIDERS: ADMIT Family Medicine; ATTEND Hospitalist
DX: K51.50 Left sided colitis without complications (principal); K59.00 Constipation, unspecified; E87.6 Hypokalemia; D25.9 Leiomyoma of uterus, unspecified; Z79.899 Other long term (current) drug therapy
CPT/HCPCS: 36415; 74177; 76830; 80053; 83690; 85025; 96361; 96374; 96375; 99285; J0696; J1171; J2405; J2470; J7030; J7799; Q9967